=== PATIENT | male | born 1980 | race Caucasian/White ===

== ENCOUNTER 2017-12-09 17:50 | Inpatient (IN) | payer BC ==
[~2017-12-09] VITALS: Ht 182.9 cm; Wt 123.9 kg
[2017-12-09] MEDS ORDERED: SODIUM CHLORIDE 0.9% 1000ML 1,000 ML IV STA (18:06)
[2017-12-09 18:50] LABS: HEMATOCRIT 16.3 % (42-52); HEMOGLOBIN 3.7 g/dL (14.0-18.0); MEAN CELL VOLUME 56.8 fL (80-100); MEAN CORPUSCULAR HEMOGLOBIN 12.9 pg (25-34); MEAN CORPUSCULAR HGB CONC 22.7 g/dl (32-36); NUCLEATED RED BLOOD CELL ABS 0.15 K/uL (0-0); PLATELET COUNT 398 K/uL (130-400)
[2017-12-09 18:53] LABS: ALBUMIN 3.5 gm/dl (3.4-5.0); ALT/SGPT 15 U/L (12-78); AST/SGOT 29 U/L (15-37); BLOOD UREA NITROGEN 10 mg/dl (7-18); CALCIUM 8.3 mg/dl (8.5-10.1); CARBON DIOXIDE 23 mmol/L (21-32); CREATININE 1.07 mg/dl (0.60-1.40); GLUCOSE 91 mg/dl (70-99); LIPASE 164 U/L (73-393); SODIUM 140 mmol/L (136-145)
[2017-12-09 18:58] LABS: ALKALINE PHOSPHATASE 42 U/L (45-117); TOTAL PROTEIN 6.9 gm/dl (6.4-8.2)
[2017-12-09] MEDS ORDERED: PANTOprazole INJ 80 MG in DEXTROSE 5% 100ML IV ONE (19:15)
--- NOTE | 2017-12-09 19:20 | DIAGNOSTIC IMAGING REPORT ---
SINGLE VIEW CHEST CLINICAL HISTORY: GI bleeding. FINDINGS: An AP, portable, upright chest radiograph is obtained. No prior studies are available for comparison at the time of dictation. The examination is degraded by portable technique and apical lordotic positioning. The cardiomediastinal silhouette is unremarkable. The lungs and pleural spaces are clear. No pneumothorax is seen. The bony thorax is grossly intact. IMPRESSION: No active disease in the chest. Electronically signed by: Jamel Brannon M.D. 12/09/2017 7:18 PM Dictated Date/Time: 12/09/2017 7:18 PM
[2017-12-09 19:24] LABS: BASO % 0.6 %; BASO ABS # 0.05 K/uL (0-0.2); EOS % 2.1 %; EOS ABS # 0.17 K/uL (0-0.5); IG# 0.05 K/uL (0.00-0.02); LYMPH % 30.4 %; LYMPH ABS # 2.43 K/uL (1.2-3.4); MONO % 7.5 %; NEUT % 58.8 %
[2017-12-09] MEDS ORDERED: PANTOprazole INJ 40 MG in DEXTROSE 5% 100ML IV SCH (19:30)
[2017-12-09 19:44] VITALS: BP 138/69; PULSE 86; TEMP 37.4; O2SAT 99
[2017-12-09 20:00] VITALS: BP 130/70; PULSE 85; TEMP 37.6; O2SAT 98
[2017-12-09 20:01] LABS: PTT PATIENT 21.3 SECONDS (21.0-31.0)
[2017-12-09 20:15] VITALS: BP 132/70; PULSE 87; TEMP 37.1; O2SAT 99
[2017-12-09] MEDS ORDERED: ONDANSETRON INJ 2 MG/ML 2 ML VIAL IV PRN ×2 (20:30→20:45)
[2017-12-09] MEDS ORDERED: ACETAMINOPHEN 325 MG TAB PO PRN (20:30)
[2017-12-09 20:45] VITALS: BP 141/60; PULSE 84; TEMP 37.5; O2SAT 98
[2017-12-09] MEDS ORDERED: ICU PROTOCOL FOR HYPERGLYCEMIA PRN (20:45)
[2017-12-09] MEDS ORDERED: SODIUM CHLORIDE 0.9% 1000ML 1,000 ML IV SCH (21:00)
[2017-12-09] MEDS ORDERED: OPTIRAY 320 IV PRN (21:15)
[2017-12-09 21:20] LABS: PHOSPHORUS 3.4 mg/dl (2.5-4.9)
--- NOTE | 2017-12-09 21:26 | Critical Care Consultation ---
Critical Care Consultation Date of Consultation: Dec 09, 2017. 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 Patient was initially diagnosed with bronchitis and sent for continued lab work. A CBC returned with a hemoglobin of 4.1 and patient was called and directed to report to the emergency room. Repeat lab work here at [facility] demonstrated a hemoglobin of 3.7. Patient is hemodynamically stable with a heart rate in the 80s and blood pressures in the 120s-140s systolically. He is on room air with adequate saturations. Patient does state that he counts the acuity of this to last Tuesday when he began having diarrhea every 2 hours. He describes the bowel movements as that of soft serve ice cream and that it was possibly darker in color than normal. Over the course of and Tuesday discontinued, Tuesday he did have an episode of bright red blood per rectum. And over the weekend the symptoms did improve on their own. His accounts to reoccurring illnesses starting back in the fall to the point that she was documenting them in May. She states that these illnesses were "weekend illnesses" and the family attributed them to his job and sick contacts at the school. Over the course of the winter these illnesses decreased in frequency and in fact the [place] in the month of [place] and he recalls no shortness of breath or dyspnea during this vacation. However over the course of November describes increasing shortness of breath and dyspnea on exertion having issue with ascending 2 flights of steps. Patient does also state that over the last few weeks he has had limited appetite eating less of his meals than usual. He does not account for any recent heartburn or GERD-like symptoms. Going back further and the patient's past medical history he does state that approximately 8 years ago he was using Tums at night as if it were candy. And approximately the last 2 years has made dietary changes including no spicy foods for the evening meal and was able to successfully wean himself off the usage of Tums. He denies lightheadedness, dizziness or confusion. He has not lost consciousness. He denies any history of irritable bowel disease including Crohn's or ulcerative colitis. Patient has never been scoped in the past. He does believe he has a sister with irritable bowel syndrome otherwise there is no gastrointestinal or hematologic diseases in his family history. He denies family history of colon cancer. Takes 2 ibuprofen 1-2 times a week over the past 3 weeks for intermittent headache. Patient states that he did drink for fun back during college years but in the last 8 years is probably drank less than 10 times. Denies a history of hepatitis or cirrhosis. Patient does otherwise have a benign past medical history. The patient denies weight loss, fever, dizziness, headache, muscle weakness, numbness, change in vision, sore throat, chest pain, palpitations, awareness of tachyarrhythmias, leg swelling, nausea, vomiting, constipation, abdominal pain, other changes in urine or bowel habits. 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) Allergies Coded Allergies: No Known Allergies (Unverified , 12/09/17) Home Medications No Active Prescriptions or Reported Meds Current Inpatient Medications Current Inpatient Medications Medications (Trade) Dose Ordered Sig/Magalie Route Start Time Stop Time Status Last Admin Dose Admin Pantoprazole Sodium 40 mg/ Dextrose 100 ml @ 20 mls/hr Q5H IV 12/09/17 19:30 12/10/17 00:29 12/09/17 19:48 20 MLS/HR Ondansetron HCl (Zofran Inj) 4 mg Q6H PRN IV 12/09/17 20:45 01/08/18 20:44 Pantoprazole Sodium (Protonix IV Bolus/Drip) 1 ea UD IV 12/09/17 21:00 01/08/18 20:59 UNV Miscellaneous Information (Icu Protocol For Hyperglycemia) 1 ea PRN PRN N/A 12/09/17 20:45 12/11/17 20:44 Sodium Chloride 1,000 ml @ 150 mls/hr Q6H40M IV 12/09/17 21:00 01/08/18 20:59 Furosemide 20 mg/ Syringe 2 ml @ 4 mls/min ONE ONCE IV 12/09/17 21:00 12/09/17 21:01 UNV Ioversol (Optiray 320) 100 ml UD PRN IV 12/09/17 21:15 12/13/17 21:14 Review of Systems 12 systems reviewed and negative other than previously mentioned in the HPI. Physical Exam Date Time Temp Pulse Resp B/P (MAP) Pulse Ox O2 Delivery O2 Flow Rate FiO2 12/09/17 21:10 87 17 121/61 98 12/09/17 21:05 84 31 125/50 98 12/09/17 21:00 84 17 138/66 98 12/09/17 20:55 85 30 129/66 98 12/09/17 20:50 95 25 141/60 98 12/09/17 20:45 86 30 135/61 98 12/09/17 20:45 37.5 84 20 141/60 98 12/09/17 20:40 83 27 121/55 97 12/09/17 20:39 140/86 12/09/17 20:35 80 21 121/58 97 12/09/17 20:30 83 31 118/58 97 12/09/17 20:25 85 31 120/55 97 12/09/17 20:20 88 34 113/59 98 12/09/17 20:15 85 25 132/70 98 12/09/17 20:15 37.1 87 18 132/70 99 12/09/17 20:10 89 25 135/70 99 12/09/17 20:05 85 18 147/74 99 12/09/17 20:00 37.6 85 18 130/70 98 12/09/17 20:00 86 38 130/70 98 12/09/17 19:48 37.4 86 18 137/65 99 Room Air 12/09/17 19:44 37.4 86 18 138/69 99 12/09/17 18:30 95 12/09/17 18:18 98 Room Air 12/09/17 17:54 37.0 101 18 129/64 100 Room Air Vital Signs - as noted Laboratory Data - as noted Physical Exam: General - NAD, Very jovial, Very pale appearing Eyes - PERRL, EOMI No icterus, gaze conjugate ENT - Mucosa moist, no lesions or candidiasis Neck - Supple, trachea midline, no masses or lymphadenopathy, no JVD or bruits Lungs - No paradoxical chest wall movement, clear to auscultation bilaterally, no wheezes, rales, or rhonchi Heart - Reg rate and rhythm, No murmur, rubs, clicks, or gallops appreciated Abdomen - BS present, no bruits noted, tympanic to percussion, soft, nontender, nondistended, obese abdomen, no organomegaly Extremities - No edema, pedal pulses intact Neuro - A&O X 4 Strength extremities equal and appropriate bilaterally Reflexes: Normal and equal CN:PERRL, EOMI, no facial asymmetry, uvula/tongue midline Laboratory Results Last 24 Hours Test 12/09/17 18:20 12/09/17 19:40 12/09/17 19:46 12/09/17 20:41 White Blood Count 8.00 K/uL Red Blood Count 2.87 M/uL Hemoglobin 3.7 g/dL Hematocrit 16.3 % Mean Corpuscular Volume 56.8 fL Mean Corpuscular Hemoglobin 12.9 pg Mean Corpuscular Hemoglobin Concent 22.7 g/dl Platelet Count 398 K/uL Neutrophils (%) (Auto) 58.8 % Lymphocytes (%) (Auto) 30.4 % Monocytes (%) (Auto) 7.5 % Eosinophils (%) (Auto) 2.1 % Basophils (%) (Auto) 0.6 % Neutrophils # (Auto) 4.70 K/uL Lymphocytes # (Auto) 2.43 K/uL Monocytes # (Auto) 0.60 K/uL Eosinophils # (Auto) 0.17 K/uL Basophils # (Auto) 0.05 K/uL Immature Granulocyte % (Auto) 0.6 % Immature Granulocyte # (Auto) 0.05 K/uL Nucleated RBC Absolute Count (auto) 0.15 K/uL Nucleated Red Blood Cells % 1.9 % Polychromasia 1+ Hypochromasia PRESENT Poikilocytosis PRESENT Microcytosis PRESENT Tear Drop Cells 1+ Ovalocytes 1+ Schistocytes 1+ Sodium Level 140 mmol/L Potassium Level 4.0 mmol/L Chloride Level 109 mmol/L Carbon Dioxide Level 23 mmol/L Anion Gap 8.0 mmol/L Blood Urea Nitrogen 10 mg/dl Creatinine 1.07 mg/dl Est Creatinine Clear Calc Drug Dose 130.2 ml/min Estimated GFR () 103.0 Estimated GFR (Non- 88.8 BUN/Creatinine Ratio 9.1 Random Glucose 91 mg/dl Calcium Level 8.3 mg/dl Phosphorus Level 3.4 mg/dl Magnesium Level 2.1 mg/dl Total Bilirubin 0.5 mg/dl Direct Bilirubin 0.1 mg/dl Aspartate Amino Transf (AST/SGOT) 29 U/L Alanine Aminotransferase (ALT/SGPT) 15 U/L Alkaline Phosphatase 42 U/L Total Creatine Kinase 58 U/L Troponin I < 0.015 ng/ml Total Protein 6.9 gm/dl Albumin 3.5 gm/dl Lipase 164 U/L Urine Color YELLOW Urine Appearance CLEAR Urine pH 6.0 Urine Specific [place] 1.020 Urine Protein NEG Urine Glucose (UA) NEG Urine Ketones NEG Urine Occult Blood NEG Urine Nitrite NEG Urine Bilirubin NEG Urine Urobilinogen NEG Urine Leukocyte Esterase NEG Prothrombin Time 10.8 SECONDS Prothromb Time International Ratio 1.0 Activated Partial Thromboplast Time 21.3 SECONDS Partial Thromboplastin Ratio 0.8 Test 12/09/17 20:58 Diagnostic Results SINGLE VIEW CHEST CLINICAL HISTORY: GI bleeding. FINDINGS: An AP, portable, upright chest radiograph is obtained. No prior studies are available for comparison at the time of dictation. The examination is degraded by portable technique and apical lordotic positioning. The cardiomediastinal silhouette is unremarkable. The lungs and pleural spaces are clear. No pneumothorax is seen. The bony thorax is grossly intact. IMPRESSION: No active disease in the chest. Electronically signed by: Jamel Brannon M.D. 12/09/2017 7:18 PM Dictated Date/Time: 12/09/2017 7:18 PM Assessment & Plan (1) Anemia (2) GI bleed Reason Critically Ill: Patient is an 37-year-old male who is transferred to the ICU for newly diagnosed anemia with hemoglobin of 3.7 and positive fecal occult blood. PLAN: GI/Nutrition: * GI Bleed: Hemoglobin 3.7 with positive Hemoccult test in ED * Pts vitals are stable. Will monitor overnight * Continue transfusion goal Hemoglobin > 7 * Check H&H q6h * Pt is willing to under go Central access with an Introducer placement &/or Arterial Line if he acutely decompensates and requires such procedure * GI Consulted: Dr. Kraft will evaluate pt in AM for possible scope * Continue Protonix infusion, no role for Octreotide currently * NPO * GI Prophylaxis: On PPI Infusion Neuro: * Denies acute pain * PRN Tylenol Pain/fever * Avoid NSAIDS Resp: * Supplemental oxygen as required * Monitor for fluid overload versus blood transfusion reactions * On room air currently with adequate saturations * Recent hx of cough and diagnosed with Bronchitis, continue to monitor CV: * Vitals stable at this time. Map > 65 and no current tachycardia * Monitor closely on telemetry * No complaints of chest pain or awareness of tachycardia Fluids/Renal: * Pt received 1L bolus in ED. * Holding additional IV fluids currently as blood product is running at high rate * Will re-evaluate need to fluids in AM * No tee to gravity. Ambulating to toilet * BUN 10/ Cr 1.07 * Daily PRP * Dose of Lasix ordered by hospital team. Check electrolytes with repeat labs ID: * No current sign of bacterial infection. * Afebrile and without leukocytosis * Trend fever curve * Daily CBC for WBC Heme: * B12 and Folate Pending * Anemia noted as above in GI * DVT Prophylaxis: Chemical contraindicated. SCDs in place and pt ambulatory Endocrine: * Denies Hx of thyroid or DM * Accu-Checks per protocol, started insulin infusion for 2 blood sugars greater than 180 Access: Maintain 2 18g PIVs CCT: 45 Minutes; This time is exclusive of all separately billable procedures. Thank you for involving us in the care of this patient. Please refer to Dr. Last Webber's addendum for further recommendations. I agree with assessment and plan of Ray Haas PA-C. Problem Qualifiers (1) GI bleed: GI bleed type/associated pathology: unspecified gastrointestinal hemorrhage type Qualified Codes: K92.2 - Gastrointestinal hemorrhage, unspecified
--- NOTE | 2017-12-09 21:30 | History and Physical ---
History & Physical Date & Time of Service: Dec 09, 2017 at 20:53 Chief Complaint: Low Hemoglobin- Referred Primary Care Physician: Cortez Nieves M.D.(MARKIE) History of Present Illness Source: patient, partner, clinic records, hospital records Pt is 37 y/o M with no significant past medical history presented to ER sent from PCPs office for the hemoglobin. Patient seen at PCP office today and had hemoglobin: 4.1 and negative chest x-ray. Patient states for at least a month has noticed shortness of breath with climbing 2 sets of stairs and has noticed sensation of heart beating in his ears after climbing stairs. He has noticed generalized muscle tightness after carrying groceries for the past month also. Couple of days ago had cramping of lower extremity. Patient reports past 3 weeks has had a cough sometimes productive of white sputum. Reports since August or September has noticed very dark colored stools which he thought was maybe very dark green but could have been black which he attributed to eating a lot of leafy greens. Patient states 10 days ago he ate lucho salad when he was at a conference in [place]. That evening started with multiple episodes of diarrhea which lasted several days. Past couple of days have had very soft BMs. Today one soft BM this morning none since. Past 10 days has noticed very black colored stools. Denies any noted bright red blood per rectum or red bloody stools. Denies any abdominal pain or vomiting. Patient states for the last couple of months has been feeling tired or weak notices this on the weekends and takes his temperature and temp of 99 F. States his son had one episode of a loose bowel movement this past week. Reports past several months has had decreased appetite. He is unsure if had any weight loss. Reports people been telling him for couple of weeks that he looks pale. No others with GI symptoms. Patient denies any other recent travel. Denies recent antibiotic use. States occasionally will have indigestion after eating spicy foods which is resolved by drinking a glass of milk or take an antacid. Takes 2 ibuprofen 1-2 times a week over the past 3 weeks for intermittent headache. Denies EtOH use or tobacco use. Denies fever/chills, diaphoresis, dizziness, syncope, vision changes, neck pain, CP, orthopnea, hemoptysis, palpitations, sore throat, choking, otalgia, rhinorrhea, paresthesias, rashes, urinary symptoms. Denies history of IBD, celiac disease, PUD, H Pylori, GI bleed in past. Past Medical/Surgical History Medical Problems: (1) No significant past medical history Status: Chronic Surgical Problems: (1) Hx of appendectomy Status: Resolved (2) Hx of inguinal hernia repair Status: Resolved Family History FH: sarcoidosis FH: thyroid condition FH: uterine cancer Social History Smoking Status: Never Smoker Smokeless Tobacco Use: No Alcohol Use: none Drug Use: none Housing status: lives with family Occupational Status: employed Allergies Coded Allergies: No Known Allergies (Unverified , 12/09/17) Home Medications No Active Prescriptions or Reported Meds Review of Systems See HPI for pertinent positives & negatives. All other systems reviewed and were otherwise negative Physical Exam Vital Signs Date Time Temp Pulse Resp B/P (MAP) Pulse Ox O2 Delivery O2 Flow Rate FiO2 12/09/17 20:45 86 30 135/61 98 12/09/17 20:40 83 27 121/55 97 12/09/17 20:39 140/86 12/09/17 20:35 80 21 121/58 97 12/09/17 20:30 83 31 118/58 97 12/09/17 20:25 85 31 120/55 97 12/09/17 20:20 88 34 113/59 98 12/09/17 20:15 85 25 132/70 98 12/09/17 20:15 37.1 87 18 132/70 99 12/09/17 20:10 89 25 135/70 99 12/09/17 20:05 85 18 147/74 99 12/09/17 20:00 37.6 85 18 130/70 98 12/09/17 20:00 86 38 130/70 98 12/09/17 19:48 37.4 86 18 137/65 99 Room Air 12/09/17 19:44 37.4 86 18 138/69 99 12/09/17 18:30 95 12/09/17 18:18 98 Room Air 12/09/17 17:54 37.0 101 18 129/64 100 Room Air General Appearance: WD/WN, no apparent distress Head: normocephalic, atraumatic Eyes: PERRL, EOMI, sclerae normal, + pertinent finding (+pale conjunctiva) ENT: hearing grossly normal, pharynx normal, + pertinent finding (mucous membranes moist) Neck: supple, trachea midline Respiratory/Chest: lungs clear, normal breath sounds, no respiratory distress Cardiovascular: regular rate, rhythm, no murmur, normal peripheral pulses Abdomen/GI: normal bowel sounds, non tender, soft Extremities/Musculoskelatal: normal inspection, normal capillary refill, no pedal edema, normal range of motion, non-tender Neurologic/Psych: alert, normal mood/affect, oriented x 3 Skin: warm/dry, + pertinent finding (+pale) Diagnostics Laboratory Results Results Past 24 Hours Test 12/09/17 18:20 12/09/17 19:40 12/09/17 19:46 12/09/17 20:41 Range/Units White Blood Count 8.00 4.8-10.8 K/uL Red Blood Count 2.87 4.7-6.1 M/uL Hemoglobin 3.7 14.0-18.0 g/dL Hematocrit 16.3 42-52 % Mean Corpuscular Volume 56.8 80-100 fL Mean Corpuscular Hemoglobin 12.9 25-34 pg Mean Corpuscular Hemoglobin Concent 22.7 32-36 g/dl Platelet Count 398 130-400 K/uL Neutrophils (%) (Auto) 58.8 % Lymphocytes (%) (Auto) 30.4 % Monocytes (%) (Auto) 7.5 % Eosinophils (%) (Auto) 2.1 % Basophils (%) (Auto) 0.6 % Neutrophils # (Auto) 4.70 1.4-6.5 K/uL Lymphocytes # (Auto) 2.43 1.2-3.4 K/uL Monocytes # (Auto) 0.60 0.11-0.59 K/uL Eosinophils # (Auto) 0.17 0-0.5 K/uL Basophils # (Auto) 0.05 0-0.2 K/uL Immature Granulocyte % (Auto) 0.6 % Immature Granulocyte # (Auto) 0.05 0.00-0.02 K/uL Nucleated RBC Absolute Count (auto) 0.15 0-0 K/uL Nucleated Red Blood Cells % 1.9 % Polychromasia 1+ Hypochromasia PRESENT Poikilocytosis PRESENT Microcytosis PRESENT Tear Drop Cells 1+ Ovalocytes 1+ Schistocytes 1+ Sodium Level 140 136-145 mmol/L Potassium Level 4.0 3.5-5.1 mmol/L Chloride Level 109 98-107 mmol/L Carbon Dioxide Level 23 21-32 mmol/L Anion Gap 8.0 3-11 mmol/L Blood Urea Nitrogen 10 7-18 mg/dl Creatinine 1.07 0.60-1.40 mg/dl Est Creatinine Clear Calc Drug Dose 130.2 ml/min Estimated GFR () 103.0 Estimated GFR (Non- 88.8 BUN/Creatinine Ratio 9.1 10-20 Random Glucose 91 70-99 mg/dl Calcium Level 8.3 8.5-10.1 mg/dl Total Bilirubin 0.5 0.2-1 mg/dl Direct Bilirubin 0.1 0-0.2 mg/dl Aspartate Amino Transf (AST/SGOT) 29 15-37 U/L Alanine Aminotransferase (ALT/SGPT) 15 12-78 U/L Alkaline Phosphatase 42 45-117 U/L Total Creatine Kinase 58 39-308 U/L Troponin I < 0.015 0-0.045 ng/ml Total Protein 6.9 6.4-8.2 gm/dl Albumin 3.5 3.4-5.0 gm/dl Lipase 164 73-393 U/L Urine Color YELLOW Urine Appearance CLEAR CLEAR Urine pH 6.0 4.5-7.5 Urine Specific [place] 1.020 1.000-1.030 Urine Protein NEG NEG Urine Glucose (UA) NEG NEG Urine Ketones NEG NEG Urine Occult Blood NEG NEG Urine Nitrite NEG NEG Urine Bilirubin NEG NEG Urine Urobilinogen NEG NEG Urine Leukocyte Esterase NEG NEG Prothrombin Time 10.8 9.0-12.0 SECONDS Prothromb Time International Ratio 1.0 0.9-1.1 Activated Partial Thromboplast Time 21.3 21.0-31.0 SECONDS Partial Thromboplastin Ratio 0.8 Diagnostic Radiology CXR: IMPRESSION: No active disease in the chest. EKG EKG: NSR, rate 91 Impression Assessment and Plan ANEMIA/GI BLEED Pt reports onset diarrhea and noted melena 10 days ago after eating Lucho lettuce. Today 1 loose BM. Patient admits very dark colored stools past 4 months, denies abdominal pain. Reports shortness of breath with 2 flights of stairs for the past month, cough 1 month. Notable pale skin 2 weeks. Denies dizziness/syncope. In ER Hgb: 3.7, was 4.1 out patient lab today. Patient afebrile, P: 101 down to 86, R: 18, BP 138/69, R: 18, 99% on room air. Heme positive stool reported in ER. Patient with 1 unit PRBC started in ER, Protonix drip started and patient given 1 L NSS. CXR: negative. Patient stable. 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 difficile -GI consult-discussed with Dr. Kraft will see patient in a.m. -N.p.o. after midnight -CBC, PRP in a.m. DVT Prophylaxis -SCDs Disposition admit ICU Full Code Follows with Dr Nieves for routine care Pt was seen with Dr Kessler. See addendum Agree with above h and P. Briefly 37Y M with no significant Past medical history presents with proound anemia. breanne says he was getting sob on exertion since last few weeks and aklso having cough and thought he had bronchitis and went to see his pcp where blood work showed significant anemia and was adviced to got to ER. Breanne says since last august he notuiced black stools on and off thought be from his green diet. last 1-2 weeks has diarrhea with black stools. Last tuesday had one episode of small amount obf blood color stools but it was resolved next day.Denies any abdominal pain. No nausea. No chest pain. No dizzness. Takes Nsaid's once in a while for headaches. Currently resting comfortably and hemodynamically stable. p/e Ge Obese. Not in distress Cvbs s1 and s2 hearfd no murmurs Rs cta b/l no added sounds Abd benign Well Puller Head non focal ext no erythema a/p Profound anemia Presented with hb 3.7 hemepositive black stools on and off for last 3-4 months. Normal wbc and platelets. Started on ppi drip to transfuse 3 units prbc today closely f/u h and h npo consulted GI close monitor in ICU DVT px scds Resuscitation Status Full code VTE Prophylaxis Will order VTE Prophylaxis: Yes Additional Copies To Cortez Nieves M.D.(MARKIE)
[2017-12-09 21:43] VITALS: BP 146/83; PULSE 90; TEMP 37.6; O2SAT 99; BMI 36.8
[2017-12-09] MEDS ORDERED: FUROSEMIDE INJ 20 MG in SYRINGE 0 ML IV ONE (23:00)
--- NOTE | 2017-12-09 23:11 | EMERGENCY ROOM VISIT NOTE ---
History Report prepared by Annia: Geo Abbott Under the Supervision of: Dr. Akash Merlos D.O. First contact with patient: 17:59 Chief Complaint: ABNORMAL LABS Stated Complaint: LOW HEMOGLOBIN- REFERRED History of Present Illness The patient is a 37 year old male who presents to the Emergency Room with complaints of a hemoglobin of 4.1 noticed this morning. The patient states that starting around October 16 he has been having shortness of breath with exertion, and he could feel the blood in his ears. Two to three weeks ago he states that he started to get a cough, though he denies any hemoptysis, and he was not on any antibiotics. The notes that the patient has been pale for the past two weeks, and the patient notes that he has been having body aches and muscle aches. He notes that the patient had a salad with david lettuce a week and a half ago, and he states that the next day he had diarrhea every two hours, and then four days ago he had an episode of bloody stool, and since then he has been having very dark stools. The patient states that he does not use Tylenol, Motrin, or NSAIDS very regularly, though he has used it recently for some headaches. Pt denies change in vision, fevers, chest pain, nausea, vomiting, pain with urination, and abdominal pain. Source of History: patient, spouse/significant other Onset: noticed this morning Position: other (global) Quality: other (low hemoglobin) Timing: constant Associated Symptoms: + cough, + SOB, + diarrhea, No nausea, No vomiting, No abdominal pain Note: Associated symptoms: Bloody stools and dark stools Review of Systems See HPI for pertinent positives & negatives. A total of 10 systems reviewed and were otherwise negative. Past Medical & Surgical Medical Problems: (1) Anemia (2) GI bleed (3) No significant past medical history Surgical Problems: (1) Hx of appendectomy (2) Hx of inguinal hernia repair Social History Smoking Status: Never Smoker Marital Status: Housing Status: lives with family Occupation Status: employed Current/Historical Medications No Active Prescriptions or Reported Meds Allergies Coded Allergies: No Known Allergies (Unverified , 12/09/17) Physical Exam Vital Signs Date Time Temp Pulse Resp B/P (MAP) Pulse Ox O2 Delivery O2 Flow Rate FiO2 12/09/17 20:45 86 30 135/61 98 12/09/17 20:45 37.5 84 20 141/60 98 12/09/17 20:40 83 27 121/55 97 12/09/17 20:39 140/86 12/09/17 20:35 80 21 121/58 97 12/09/17 20:30 83 31 118/58 97 12/09/17 20:25 85 31 120/55 97 12/09/17 20:20 88 34 113/59 98 12/09/17 20:15 85 25 132/70 98 12/09/17 20:15 37.1 87 18 132/70 99 12/09/17 20:10 89 25 135/70 99 12/09/17 20:05 85 18 147/74 99 12/09/17 20:00 37.6 85 18 130/70 98 12/09/17 20:00 86 38 130/70 98 12/09/17 19:48 37.4 86 18 137/65 99 Room Air 12/09/17 19:44 37.4 86 18 138/69 99 12/09/17 18:30 95 12/09/17 18:18 98 Room Air 12/09/17 17:54 37.0 101 18 129/64 100 Room Air Physical Exam GENERAL: Standing up in room, pale, no acute distress, non-toxic. EYE EXAM: normal conjunctiva. OROPHARYNX: no exudate, no erythema, lips, buccal mucosa, and tongue normal and mucous membranes are moist NECK: supple, no nuchal rigidity, no adenopathy, non-tender LUNGS: Clear to auscultation. Normal chest wall mechanics HEART: Tachycardic. No murmurs, S1 normal and S2 normal ABDOMEN: abdomen soft, non-tender, normo-active bowel sounds, no masses, no rebound or guarding. BACK: Back is symmetrical on inspection and there is no deformity, no midline tenderness, no CVA tenderness. SKIN: no rashes and no bruising UPPER EXTREMITIES: upper extremities are grossly normal. LOWER EXTREMITIES: No pitting edema. NEURO EXAM: Normal sensorium, cranial nerves II-XII grossly intact, normal speech, no gross weakness of arms, no gross weakness of legs. Medical Decision & Procedures ER Provider Diagnostic Interpretation: Radiology results as stated below per my review and the radiologist's interpretation: SINGLE VIEW CHEST CLINICAL HISTORY: GI bleeding. FINDINGS: An AP, portable, upright chest radiograph is obtained. No prior studies are available for comparison at the time of dictation. The examination is degraded by portable technique and apical lordotic positioning. The cardiomediastinal silhouette is unremarkable. The lungs and pleural spaces are clear. No pneumothorax is seen. The bony thorax is grossly intact. IMPRESSION: No active disease in the chest. Electronically signed by: Jamel Brannon M.D. 12/09/2017 7:18 PM Dictated Date/Time: 12/09/2017 7:18 PM Laboratory Results 12/09/17 18:20 Red Blood Count 2.87, Mean Corpuscular Volume 56.8, Mean Corpuscular Hemoglobin 12.9, Mean Corpuscular Hemoglobin Concent 22.7, Neutrophils (%) (Auto) 58.8, Lymphocytes (%) (Auto) 30.4, Monocytes (%) (Auto) 7.5, Eosinophils (%) (Auto) 2.1, Basophils (%) (Auto) 0.6, Neutrophils # (Auto) 4.70, Lymphocytes # (Auto) 2.43, Monocytes # (Auto) 0.60, Eosinophils # (Auto) 0.17, Basophils # (Auto) 0.05 12/09/17 18:20 Test 12/09/17 18:20 12/09/17 19:40 12/09/17 19:46 White Blood Count 8.00 K/uL (4.8-10.8) Red Blood Count 2.87 M/uL (4.7-6.1) Hemoglobin 3.7 g/dL (14.0-18.0) Hematocrit 16.3 % (42-52) Mean Corpuscular Volume 56.8 fL (80-100) Mean Corpuscular Hemoglobin 12.9 pg (25-34) Mean Corpuscular Hemoglobin Concent 22.7 g/dl (32-36) Platelet Count 398 K/uL (130-400) Neutrophils (%) (Auto) 58.8 % Lymphocytes (%) (Auto) 30.4 % Monocytes (%) (Auto) 7.5 % Eosinophils (%) (Auto) 2.1 % Basophils (%) (Auto) 0.6 % Neutrophils # (Auto) 4.70 K/uL (1.4-6.5) Lymphocytes # (Auto) 2.43 K/uL (1.2-3.4) Monocytes # (Auto) 0.60 K/uL (0.11-0.59) Eosinophils # (Auto) 0.17 K/uL (0-0.5) Basophils # (Auto) 0.05 K/uL (0-0.2) Immature Granulocyte % (Auto) 0.6 % Immature Granulocyte # (Auto) 0.05 K/uL (0.00-0.02) Nucleated RBC Absolute Count (auto) 0.15 K/uL (0-0) Nucleated Red Blood Cells % 1.9 % Polychromasia 1+ Hypochromasia PRESENT Poikilocytosis PRESENT Microcytosis PRESENT Tear Drop Cells 1+ Ovalocytes 1+ Schistocytes 1+ Anion Gap 8.0 mmol/L (3-11) Est Creatinine Clear Calc Drug Dose 130.2 ml/min Estimated GFR () 103.0 Estimated GFR (Non- 88.8 BUN/Creatinine Ratio 9.1 (10-20) Calcium Level 8.3 mg/dl (8.5-10.1) Phosphorus Level 3.4 mg/dl (2.5-4.9) Magnesium Level 2.1 mg/dl (1.8-2.4) Total Bilirubin 0.5 mg/dl (0.2-1) Direct Bilirubin 0.1 mg/dl (0-0.2) Aspartate Amino Transf (AST/SGOT) 29 U/L (15-37) Alanine Aminotransferase (ALT/SGPT) 15 U/L (12-78) Alkaline Phosphatase 42 U/L (45-117) Total Creatine Kinase 58 U/L (39-308) Troponin I < 0.015 ng/ml (0-0.045) Total Protein 6.9 gm/dl (6.4-8.2) Albumin 3.5 gm/dl (3.4-5.0) Lipase 164 U/L (73-393) Urine Color YELLOW Urine Appearance CLEAR (CLEAR) Urine pH 6.0 (4.5-7.5) Urine Specific [place] 1.020 (1.000-1.030) Urine Protein NEG (NEG) Urine Glucose (UA) NEG (NEG) Urine Ketones NEG (NEG) Urine Occult Blood NEG (NEG) Urine Nitrite NEG (NEG) Urine Bilirubin NEG (NEG) Urine Urobilinogen NEG (NEG) Urine Leukocyte Esterase NEG (NEG) Prothrombin Time 10.8 SECONDS (9.0-12.0) Prothromb Time International Ratio 1.0 (0.9-1.1) Activated Partial Thromboplast Time 21.3 SECONDS (21.0-31.0) Partial Thromboplastin Ratio 0.8 Laboratory results per my review. Medications Administered Medications (Trade) Dose Ordered Sig/Magalie Route Start Time Stop Time Status Last Admin Dose Admin Sodium Chloride 1,000 ml @ 999 mls/hr Q1H1M STAT IV 12/09/17 18:06 12/09/17 19:06 DC 12/09/17 18:34 999 MLS/HR Pantoprazole Sodium 80 mg/ Dextrose 120 ml @ 480 mls/hr TODAY@1915 ONCE IV 12/09/17 19:15 12/09/17 19:29 DC 12/09/17 19:26 480 MLS/HR Pantoprazole Sodium 40 mg/ Dextrose 100 ml @ 20 mls/hr Q5H IV 12/09/17 19:30 12/10/17 00:29 12/09/17 19:48 20 MLS/HR ECG Per My Interpretation Indication: SOB/dyspnea, other Rate (beats per minute): 91 Rhythm: normal sinus Findings: no ectopy, other (normal axis) ED Course ED COURSE: Vital signs were reviewed and showed tachycardia. The patients medical record was reviewed The above diagnostic studies were performed and reviewed. ED treatments and interventions as stated above. 1758: The patient was evaluated in room B9. A complete history and physical examination was performed. 180: Sodium Chloride 1000 ml @ 999 mls/hr IV 1914: Pantoprazole Sodium 80mg/ Dextrose 120ml @ 480mls/hr IV 1929: Pantoprazole Sodium 40mg/ Dextrose 20mls/hr IV 1941: Upon reevaluation, the patient is doing okay.I discussed my findings with the patient and he understands and agrees with the treatment plan. Based on the patients age, coexisting illnesses, exam and lab findings the decision to treat as an inpatient was made. The patient remained stable while under my care. The patient will be evaluated for further management. 1943: I reviewed the patient's case with Bina Hampton PA-C [facility] Hospitalist. She will evaluate the patient for further management. Medical Decision Differential Diagnosis includes but is not limited to dehydration, stroke, anemia, hypoglycemia, hyponatremia, hypernatremia, urinary tract infection, pneumonia, bronchitis, sepsis, gastroenteritis, additional abdominal pathology, metabolic abnormalities and infections. Patient is a 37-year-old male who presents the ER for hemoglobin of 4. Upon presentation he was slightly tachycardic. He does admit to dark tarry stools and intermittent bright red blood. He has been taking some intermittent NSAIDs. Denies any steroids. He has no abdominal pain. Patient has no other complaints at this time. He does admit to exertional shortness of breath. Labs were obtained and show a hemoglobin of 3.7. BMP along with LFTs, bilirubin and troponin were negative. Lipase is normal. UA was negative. Rectal was heme positive. Patient was given fluids, Protonix drip and bolus and PRBCs. He was monitored closely while in the ER and admitted to internal medicine for GI bleed and symptomatic anemia. Medication Reconcilliation Current Medication List: was personally reviewed by me Blood Pressure Screening Patient's blood pressure: Normal blood pressure Consults Time Called: 1940 Consulting Physician: Bina Garrett Returned Call: 1943 I reviewed the patient's case with Bina Vanessaist. She will evaluate the patient for further management. Impression Primary Impression: Symptomatic anemia Additional Impression: GI bleed Critical Care I have personally spent 35 minutes of critical care time in the direct management of this patient. This includes bedside care, interpretation of diagnostic studies, and testing, discussion with consultants, patient, and family members, and other required patient management activities. This 35 minutes is in excess of all separately billable procedures. Scribe Attestation The scribe's documentation has been prepared under my direction and personally reviewed by me in its entirety. I confirm that the note above accurately reflects all work, treatment, procedures, and medical decision making performed by me. Departure Information Dispostion Being Evaluated By Hospitalist Prescriptions No Active Prescriptions or Reported Meds Referrals Cortez Nieves M.D. ([facility]) (PCP) Patient Instructions My [facility] Problem Qualifiers Additional Impression: GI bleed GI bleed type/associated pathology: unspecified gastrointestinal hemorrhage type Qualified Codes: K92.2 - Gastrointestinal hemorrhage, unspecified
--- NOTE | 2017-12-09 23:29 | DIAGNOSTIC IMAGING REPORT ---
CT SCAN OF THE ABDOMEN AND PELVIS WITH IV CONTRAST CLINICAL HISTORY: Melena. Anemia. COMPARISON STUDY: No priors. TECHNIQUE: Following the IV administration of 93 cc of Optiray 320, CT scan of the abdomen and pelvis is performed from the lung bases to the proximal femora. Images are reviewed in the axial, sagittal, and coronal planes. IV contrast was administered without complication. A dose lowering technique was utilized adhering to the principles of ALARA. CT DOSE: 1439.83 mGy.cm FINDINGS: Lung bases: The heart is normal in size and without pericardial effusion. The lung bases are clear. Liver: The contrast-enhanced liver is normal in size and contour. The liver demonstrates diffusely diminished attenuation consistent with hepatic steatosis. There is no intrahepatic biliary ductal dilatation. The hepatic veins and portal veins are patent. Gallbladder: Unremarkable. Spleen: The spleen is mildly enlarged, measuring 13.4 cm in length. Pancreas: Unremarkable. Adrenal glands: Unremarkable. Kidneys: The contrast enhanced kidneys are normal in size and without hydronephrosis. The kidneys enhance symmetrically. A 1.3 cm cyst is noted in the right upper pole. A subcentimeter cortical hypodensity in the left kidney also likely represents a cyst but is too small for definitive characterization. Abdominal vasculature: The abdominal aorta is normal in course and caliber. Stomach and bowel: There is a moderate to large hiatal hernia. Mild stranding suggested around the distal stomach, best seen on axial image #129. There is no significant gastric wall thickening or pneumatosis. The duodenum is normal in configuration. No bowel obstruction is seen. There are scattered colonic diverticula without CT evidence of acute diverticulitis. No thick walled bowel loops are identified. The appendix is not identified and reported surgically absent. Peritoneum: There is no intraperitoneal free air or abdominal ascites. There is a small fat-containing umbilical hernia. Lymphadenopathy: None. Pelvic viscera: The bladder, prostate, and seminal vesicles are normal as visualized. Skeletal structures: No lytic or blastic lesions are seen. IMPRESSION: 1. There is mild nonspecific stranding suggested around the distal stomach. No significant gastric wall thickening is identified. Correlate clinically for evidence of gastritis. Endoscopy could be considered for further assessment if clinically warranted. 2. The small bowel loops and colon are normal in appearance. 3. Moderate to large hiatal hernia. 4. Findings suggest mild hepatic steatosis. 5. Additional findings as above. Electronically signed by: Jamel Brannon M.D. 12/09/2017 11:27 PM Dictated Date/Time: 12/09/2017 11:19 PM
[2017-12-10] VITALS (53 sets, daily range): BP systolic 96–157; BP diastolic 44–76; PULSE 61–83; TEMP 36.6–37.3; O2SAT 95–100
[2017-12-10] MEDS: PANTOprazole INJ 40 MG in DEXTROSE 5% 100ML IV SCH ×4 (00:41→15:28)
[2017-12-10 03:43] LABS: CALCIUM 8.2 mg/dl (8.5-10.1); CREATININE 1.02 mg/dl (0.60-1.40); PHOSPHORUS 3.7 mg/dl (2.5-4.9)
[2017-12-10 03:44] LABS: HEMOGLOBIN 5.8 g/dL (14.0-18.0); MEAN CELL VOLUME 64.2 fL (80-100); MEAN CORPUSCULAR HEMOGLOBIN 17.7 pg (25-34); MEAN CORPUSCULAR HGB CONC 27.6 g/dl (32-36); MEAN PLATELET VOLUME 8.4 fL (7.4-10.4); NUCLEATED RED BLOOD CELL ABS 0.12 K/uL (0-0); PLATELET COUNT 298 K/uL (130-400); RED CELL DISTRIBUTION WIDTH CV 29.6 % (11.5-14.5); RED CELL DISTRIBUTION WIDTH SD 66.2 fL (36.4-46.3); WHITE BLOOD COUNT 6.17 K/uL (4.8-10.8)
[2017-12-10 03:51] LABS: BASO % 0.6 %; BASO ABS # 0.04 K/uL (0-0.2); EOS % 3.1 %; EOS ABS # 0.19 K/uL (0-0.5); IG# 0.02 K/uL (0.00-0.02); LYMPH % 29.2 %; MONO % 7.6 %; MONO ABS # 0.47 K/uL (0.11-0.59); NEUT % 59.2 %; NEUT ABS # 3.65 K/uL (1.4-6.5)
[2017-12-10 08:31] LABS: HEMATOCRIT 25.6 % (42-52); HEMOGLOBIN 7.4 g/dL (14.0-18.0)
--- NOTE | 2017-12-10 09:34 | Progress Note ---
Internal Med Progress Note Date of Service: Dec 10, 2017. Provider Documentation: SUBJECTIVE: seen and examined at bedside States having abdominal bloating Mild headache 1/10 Denies chest pain, SOB, nausea, dizziness No bleeding issues Last BM yesterday AM Family at bedside No other complaints OBJECTIVE: Vital Signs-as noted below Physical Exam: General Appearance:Moderately built and nourished, no apparent distress Head: normocephalic, Atraumatic Eyes: normal inspection, EOMI, PERRL Neck: supple, Trachea midline Respiratory/Chest: Normal breath sounds, CTA Cardiovascular: S1, S2, No murmur Abdomen/GI:Soft, Non tender, Bowel sounds present Extremities/Musculoskelatal:normal inspection, no edema Neurologic/Psych:AAOX3, grossly no focal neurological deficits Skin: normal color, warm Lab data as noted below. ASSESSMENT & PLAN: Profound Anemia: GI bleeding: H/O melena intermittently, CHOI S/P 5 units PRBCs Continue IV Protonix IV Fluids Vitamin B12 and folate: CT abd: gastritis, large hiatal hernia Stool studies: pending GI consulted monitor H&H NPO for now Avoid NSAIDs DVT Px: SCDs Disposition: Expect to discharge home when stable Vital Signs: Date Time Temp Pulse Resp B/P (MAP) Pulse Ox O2 Delivery O2 Flow Rate FiO2 12/10/17 09:30 74 20 124/71 (88) 98 Room Air 12/10/17 07:30 36.9 74 20 125/74 (91) 100 Room Air 12/10/17 07:30 Room Air 12/10/17 06:31 37.3 75 20 117/69 (85) 100 12/10/17 06:16 37.3 74 17 123/67 (85) 99 12/10/17 06:01 37.1 64 25 119/74 (89) 98 12/10/17 05:50 37.0 69 28 127/66 (86) 98 12/10/17 05:46 78 18 123/68 (86) 98 12/10/17 05:45 72 23 115/69 (84) 100 12/10/17 05:44 37.2 73 16 115/69 99 12/10/17 05:31 72 13 119/74 (89) 100 12/10/17 05:16 75 20 124/66 (85) 99 12/10/17 05:01 37.0 63 25 124/65 (84) 98 Room Air 12/10/17 04:46 71 28 109/50 (69) 98 Room Air 12/10/17 04:31 37.0 79 16 124/65 (84) 99 Room Air 12/10/17 04:20 37.0 67 23 128/70 (89) 99 Room Air 12/10/17 04:15 37.0 72 20 124/62 (82) 100 Room Air 12/10/17 04:14 37.0 73 16 124/62 99 12/10/17 04:01 67 25 126/62 (83) 98 Room Air 12/10/17 04:00 Room Air 12/10/17 03:31 70 22 120/71 (87) 99 Room Air 12/10/17 03:02 74 16 122/49 (73) 100 Room Air 12/10/17 02:31 70 26 126/65 (85) 97 Room Air 12/10/17 02:01 37.1 73 22 112/62 (79) 98 Room Air 12/10/17 01:43 37.0 78 19 123/49 (73) 99 Room Air 12/10/17 01:31 68 22 108/44 (65) 98 Room Air 12/10/17 01:16 37.1 76 20 124/65 (84) 97 Room Air 12/10/17 01:01 69 26 116/57 (76) 99 Room Air 12/10/17 00:46 37.2 75 25 112/65 (81) 99 Room Air 12/10/17 00:43 36.9 75 24 115/60 (78) 98 Room Air 12/10/17 00:37 37.1 78 20 119/57 (77) 98 Room Air 12/10/17 00:01 37.1 72 25 126/64 (84) 100 Room Air 12/09/17 23:59 Room Air 12/09/17 21:43 37.6 90 28 146/83 99 Room Air 12/09/17 21:10 87 17 121/61 98 12/09/17 21:05 84 31 125/50 98 12/09/17 21:00 84 17 138/66 98 12/09/17 20:55 85 30 129/66 98 12/09/17 20:50 95 25 141/60 98 12/09/17 20:45 86 30 135/61 98 12/09/17 20:45 37.5 84 20 141/60 98 12/09/17 20:40 83 27 121/55 97 12/09/17 20:39 140/86 12/09/17 20:35 80 21 121/58 97 12/09/17 20:30 83 31 118/58 97 12/09/17 20:25 85 31 120/55 97 12/09/17 20:20 88 34 113/59 98 12/09/17 20:15 85 25 132/70 98 12/09/17 20:15 37.1 87 18 132/70 99 12/09/17 20:10 89 25 135/70 99 12/09/17 20:05 85 18 147/74 99 12/09/17 20:00 37.6 85 18 130/70 98 12/09/17 20:00 86 38 130/70 98 12/09/17 19:48 37.4 86 18 137/65 99 Room Air 12/09/17 19:44 37.4 86 18 138/69 99 12/09/17 18:30 95 12/09/17 18:18 98 Room Air 12/09/17 17:54 37.0 101 18 129/64 100 Room Air Lab Results: Results Past 24 Hours Test 12/09/17 18:20 12/09/17 19:40 12/09/17 19:46 12/09/17 21:44 Range/Units White Blood Count 8.00 4.8-10.8 K/uL Red Blood Count 2.87 4.7-6.1 M/uL Hemoglobin 3.7 14.0-18.0 g/dL Hematocrit 16.3 42-52 % Mean Corpuscular Volume 56.8 80-100 fL Mean Corpuscular Hemoglobin 12.9 25-34 pg Mean Corpuscular Hemoglobin Concent 22.7 32-36 g/dl Platelet Count 398 130-400 K/uL Neutrophils (%) (Auto) 58.8 % Lymphocytes (%) (Auto) 30.4 % Monocytes (%) (Auto) 7.5 % Eosinophils (%) (Auto) 2.1 % Basophils (%) (Auto) 0.6 % Neutrophils # (Auto) 4.70 1.4-6.5 K/uL Lymphocytes # (Auto) 2.43 1.2-3.4 K/uL Monocytes # (Auto) 0.60 0.11-0.59 K/uL Eosinophils # (Auto) 0.17 0-0.5 K/uL Basophils # (Auto) 0.05 0-0.2 K/uL Immature Granulocyte % (Auto) 0.6 % Immature Granulocyte # (Auto) 0.05 0.00-0.02 K/uL Nucleated RBC Absolute Count (auto) 0.15 0-0 K/uL Nucleated Red Blood Cells % 1.9 % Polychromasia 1+ Hypochromasia PRESENT Poikilocytosis PRESENT Microcytosis PRESENT Tear Drop Cells 1+ Ovalocytes 1+ Schistocytes 1+ Sodium Level 140 136-145 mmol/L Potassium Level 4.0 3.5-5.1 mmol/L Chloride Level 109 98-107 mmol/L Carbon Dioxide Level 23 21-32 mmol/L Anion Gap 8.0 3-11 mmol/L Blood Urea Nitrogen 10 7-18 mg/dl Creatinine 1.07 0.60-1.40 mg/dl Est Creatinine Clear Calc Drug Dose 130.2 ml/min Estimated GFR () 103.0 Estimated GFR (Non- 88.8 BUN/Creatinine Ratio 9.1 10-20 Random Glucose 91 70-99 mg/dl Calcium Level 8.3 8.5-10.1 mg/dl Phosphorus Level 3.4 2.5-4.9 mg/dl Magnesium Level 2.1 1.8-2.4 mg/dl Total Bilirubin 0.5 0.2-1 mg/dl Direct Bilirubin 0.1 0-0.2 mg/dl Aspartate Amino Transf (AST/SGOT) 29 15-37 U/L Alanine Aminotransferase (ALT/SGPT) 15 12-78 U/L Alkaline Phosphatase 42 45-117 U/L Total Creatine Kinase 58 39-308 U/L Troponin I < 0.015 0-0.045 ng/ml Total Protein 6.9 6.4-8.2 gm/dl Albumin 3.5 3.4-5.0 gm/dl Lipase 164 73-393 U/L Urine Color YELLOW Urine Appearance CLEAR CLEAR Urine pH 6.0 4.5-7.5 Urine Specific [place] 1.020 1.000-1.030 Urine Protein NEG NEG Urine Glucose (UA) NEG NEG Urine Ketones NEG NEG Urine Occult Blood NEG NEG Urine Nitrite NEG NEG Urine Bilirubin NEG NEG Urine Urobilinogen NEG NEG Urine Leukocyte Esterase NEG NEG Prothrombin Time 10.8 9.0-12.0 SECONDS Prothromb Time International Ratio 1.0 0.9-1.1 Activated Partial Thromboplast Time 21.3 21.0-31.0 SECONDS Partial Thromboplastin Ratio 0.8 Vitamin B12 Level 366 211-911 pg/mL Folate 14.27 >5.38 ng/mL Test 12/10/17 03:14 12/10/17 08:06 Range/Units White Blood Count 6.17 4.8-10.8 K/uL Red Blood Count 3.27 4.7-6.1 M/uL Hemoglobin 5.8 7.4 14.0-18.0 g/dL Hematocrit 21.0 25.6 42-52 % Mean Corpuscular Volume 64.2 80-100 fL Mean Corpuscular Hemoglobin 17.7 25-34 pg Mean Corpuscular Hemoglobin Concent 27.6 32-36 g/dl Platelet Count 298 130-400 K/uL Mean Platelet Volume 8.4 7.4-10.4 fL Neutrophils (%) (Auto) 59.2 % Lymphocytes (%) (Auto) 29.2 % Monocytes (%) (Auto) 7.6 % Eosinophils (%) (Auto) 3.1 % Basophils (%) (Auto) 0.6 % Neutrophils # (Auto) 3.65 1.4-6.5 K/uL Lymphocytes # (Auto) 1.80 1.2-3.4 K/uL Monocytes # (Auto) 0.47 0.11-0.59 K/uL Eosinophils # (Auto) 0.19 0-0.5 K/uL Basophils # (Auto) 0.04 0-0.2 K/uL RDW Standard Deviation 66.2 36.4-46.3 fL RDW Coefficient of Variation 29.6 11.5-14.5 % Immature Granulocyte % (Auto) 0.3 % Immature Granulocyte # (Auto) 0.02 0.00-0.02 K/uL Nucleated RBC Absolute Count (auto) 0.12 0-0 K/uL Nucleated Red Blood Cells % 1.9 % Polychromasia 1+ Hypochromasia PRESENT Anisocytosis PRESENT Microcytosis PRESENT Tear Drop Cells 2+ Schistocytes 1+ Sodium Level 139 136-145 mmol/L Potassium Level 4.0 3.5-5.1 mmol/L Chloride Level 112 98-107 mmol/L Carbon Dioxide Level 24 21-32 mmol/L Anion Gap 3.0 3-11 mmol/L Blood Urea Nitrogen 8 7-18 mg/dl Creatinine 1.02 0.60-1.40 mg/dl Est Creatinine Clear Calc Drug Dose 135.7 ml/min Estimated GFR () 109.1 Estimated GFR (Non- 94.1 BUN/Creatinine Ratio 8.3 10-20 Random Glucose 90 70-99 mg/dl Calcium Level 8.2 8.5-10.1 mg/dl Phosphorus Level 3.7 2.5-4.9 mg/dl Magnesium Level 2.1 1.8-2.4 mg/dl Microbiology Results 12/09/17 MRSA DNA Surveillance Screen - Final, Complete Specimen Negative for MRSA by DNA Probe
--- NOTE | 2017-12-10 10:44 | Critical Care Progress Note ---
Critical Care Progress Note Date of Service Dec 10, 2017. ICU Day ICU Day Number: [address] Webber Subjective No overnight events, exertional dyspnea improved, no chest pain no shortness of breath Objective General: Alert. nontoxic. Skin: Warm, dry, Head: Atraumatic Ears, nose, mouth and throat: airway patent Cardiovascular: Normal peripheral perfusion Respiratory: no respiratory distress Gastrointestinal: Non distended no tenderness with palpation Musculoskeletal: No deformity Assessment & Plan Reason Critically Ill: Profound anemia with presumptive gastrointestinal losses status post 5 units packed red blood cells PLAN: CV: Exertional dyspnea secondary to profound anemia -Reviewed EKG Fluids/Renal: D5 half NS with 20 K at 75 ML's per hour GI/Nutrition: N.p.o. GI consult pending -Anticipate EGD in the near future Heme: Profound anemia -Microcytic indices, attempting to add iron studies to initial labs -Add reticulocyte count Endocrine: Blood sugars within acceptable limits Vascular access: Peripheral IVs Code Status: Full Likely candidate for downgrade after evaluation by gastroenterology Data Medications: Current Inpatient Medications Medications (Trade) Dose Ordered Sig/Magalie Route Start Time Stop Time Status Last Admin Dose Admin Ondansetron HCl (Zofran Inj) 4 mg Q6H PRN IV 12/09/17 20:45 01/08/18 20:44 Miscellaneous Information (Icu Protocol For Hyperglycemia) 1 ea PRN PRN N/A 12/09/17 20:45 12/11/17 20:44 Ioversol (Optiray 320) 100 ml UD PRN IV 12/09/17 21:15 12/13/17 21:14 Pantoprazole Sodium 40 mg/ Dextrose 100 ml @ 20 mls/hr Q5H IV 12/10/17 00:30 01/09/18 00:29 12/10/17 06:13 20 MLS/HR Vital Signs: Date Time Temp Pulse Resp B/P (MAP) Pulse Ox O2 Delivery O2 Flow Rate FiO2 12/10/17 09:30 74 20 124/71 (88) 98 Room Air 12/10/17 07:30 36.9 74 20 125/74 (91) 100 Room Air 12/10/17 07:30 Room Air 12/10/17 06:31 37.3 75 20 117/69 (85) 100 12/10/17 06:16 37.3 74 17 123/67 (85) 99 12/10/17 06:01 37.1 64 25 119/74 (89) 98 12/10/17 05:50 37.0 69 28 127/66 (86) 98 12/10/17 05:46 78 18 123/68 (86) 98 12/10/17 05:45 72 23 115/69 (84) 100 12/10/17 05:44 37.2 73 16 115/69 99 12/10/17 05:31 72 13 119/74 (89) 100 12/10/17 05:16 75 20 124/66 (85) 99 12/10/17 05:01 37.0 63 25 124/65 (84) 98 Room Air 12/10/17 04:46 71 28 109/50 (69) 98 Room Air 12/10/17 04:31 37.0 79 16 124/65 (84) 99 Room Air 12/10/17 04:20 37.0 67 23 128/70 (89) 99 Room Air 12/10/17 04:15 37.0 72 20 124/62 (82) 100 Room Air 12/10/17 04:14 37.0 73 16 124/62 99 12/10/17 04:01 67 25 126/62 (83) 98 Room Air 12/10/17 04:00 Room Air 12/10/17 03:31 70 22 120/71 (87) 99 Room Air 12/10/17 03:02 74 16 122/49 (73) 100 Room Air 12/10/17 02:31 70 26 126/65 (85) 97 Room Air 12/10/17 02:01 37.1 73 22 112/62 (79) 98 Room Air 12/10/17 01:43 37.0 78 19 123/49 (73) 99 Room Air 12/10/17 01:31 68 22 108/44 (65) 98 Room Air 12/10/17 01:16 37.1 76 20 124/65 (84) 97 Room Air 12/10/17 01:01 69 26 116/57 (76) 99 Room Air 12/10/17 00:46 37.2 75 25 112/65 (81) 99 Room Air 12/10/17 00:43 36.9 75 24 115/60 (78) 98 Room Air 12/10/17 00:37 37.1 78 20 119/57 (77) 98 Room Air 12/10/17 00:01 37.1 72 25 126/64 (84) 100 Room Air 12/09/17 23:59 Room Air 12/09/17 21:43 37.6 90 28 146/83 99 Room Air 12/09/17 21:10 87 17 121/61 98 12/09/17 21:05 84 31 125/50 98 12/09/17 21:00 84 17 138/66 98 12/09/17 20:55 85 30 129/66 98 12/09/17 20:50 95 25 141/60 98 12/09/17 20:45 86 30 135/61 98 12/09/17 20:45 37.5 84 20 141/60 98 12/09/17 20:40 83 27 121/55 97 12/09/17 20:39 140/86 12/09/17 20:35 80 21 121/58 97 12/09/17 20:30 83 31 118/58 97 12/09/17 20:25 85 31 120/55 97 12/09/17 20:20 88 34 113/59 98 12/09/17 20:15 85 25 132/70 98 12/09/17 20:15 37.1 87 18 132/70 99 12/09/17 20:10 89 25 135/70 99 12/09/17 20:05 85 18 147/74 99 12/09/17 20:00 37.6 85 18 130/70 98 12/09/17 20:00 86 38 130/70 98 12/09/17 19:48 37.4 86 18 137/65 99 Room Air 12/09/17 19:44 37.4 86 18 138/69 99 12/09/17 18:30 95 12/09/17 18:18 98 Room Air 12/09/17 17:54 37.0 101 18 129/64 100 Room Air Laboratory Results: Last 24 Hours Test 12/09/17 18:20 12/09/17 19:40 12/09/17 19:46 12/09/17 21:44 White Blood Count 8.00 K/uL Red Blood Count 2.87 M/uL Hemoglobin 3.7 g/dL Hematocrit 16.3 % Mean Corpuscular Volume 56.8 fL Mean Corpuscular Hemoglobin 12.9 pg Mean Corpuscular Hemoglobin Concent 22.7 g/dl Platelet Count 398 K/uL Neutrophils (%) (Auto) 58.8 % Lymphocytes (%) (Auto) 30.4 % Monocytes (%) (Auto) 7.5 % Eosinophils (%) (Auto) 2.1 % Basophils (%) (Auto) 0.6 % Neutrophils # (Auto) 4.70 K/uL Lymphocytes # (Auto) 2.43 K/uL Monocytes # (Auto) 0.60 K/uL Eosinophils # (Auto) 0.17 K/uL Basophils # (Auto) 0.05 K/uL Immature Granulocyte % (Auto) 0.6 % Immature Granulocyte # (Auto) 0.05 K/uL Nucleated RBC Absolute Count (auto) 0.15 K/uL Nucleated Red Blood Cells % 1.9 % Polychromasia 1+ Hypochromasia PRESENT Poikilocytosis PRESENT Microcytosis PRESENT Tear Drop Cells 1+ Ovalocytes 1+ Schistocytes 1+ Sodium Level 140 mmol/L Potassium Level 4.0 mmol/L Chloride Level 109 mmol/L Carbon Dioxide Level 23 mmol/L Anion Gap 8.0 mmol/L Blood Urea Nitrogen 10 mg/dl Creatinine 1.07 mg/dl Est Creatinine Clear Calc Drug Dose 130.2 ml/min Estimated GFR () 103.0 Estimated GFR (Non- 88.8 BUN/Creatinine Ratio 9.1 Random Glucose 91 mg/dl Calcium Level 8.3 mg/dl Phosphorus Level 3.4 mg/dl Magnesium Level 2.1 mg/dl Total Bilirubin 0.5 mg/dl Direct Bilirubin 0.1 mg/dl Aspartate Amino Transf (AST/SGOT) 29 U/L Alanine Aminotransferase (ALT/SGPT) 15 U/L Alkaline Phosphatase 42 U/L Total Creatine Kinase 58 U/L Troponin I < 0.015 ng/ml Total Protein 6.9 gm/dl Albumin 3.5 gm/dl Lipase 164 U/L Urine Color YELLOW Urine Appearance CLEAR Urine pH 6.0 Urine Specific [place] 1.020 Urine Protein NEG Urine Glucose (UA) NEG Urine Ketones NEG Urine Occult Blood NEG Urine Nitrite NEG Urine Bilirubin NEG Urine Urobilinogen NEG Urine Leukocyte Esterase NEG Prothrombin Time 10.8 SECONDS Prothromb Time International Ratio 1.0 Activated Partial Thromboplast Time 21.3 SECONDS Partial Thromboplastin Ratio 0.8 Vitamin B12 Level 366 pg/mL Folate 14.27 ng/mL Test 12/10/17 03:14 12/10/17 08:06 White Blood Count 6.17 K/uL Red Blood Count 3.27 M/uL Hemoglobin 5.8 g/dL 7.4 g/dL Hematocrit 21.0 % 25.6 % Mean Corpuscular Volume 64.2 fL Mean Corpuscular Hemoglobin 17.7 pg Mean Corpuscular Hemoglobin Concent 27.6 g/dl Platelet Count 298 K/uL Mean Platelet Volume 8.4 fL Neutrophils (%) (Auto) 59.2 % Lymphocytes (%) (Auto) 29.2 % Monocytes (%) (Auto) 7.6 % Eosinophils (%) (Auto) 3.1 % Basophils (%) (Auto) 0.6 % Neutrophils # (Auto) 3.65 K/uL Lymphocytes # (Auto) 1.80 K/uL Monocytes # (Auto) 0.47 K/uL Eosinophils # (Auto) 0.19 K/uL Basophils # (Auto) 0.04 K/uL RDW Standard Deviation 66.2 fL RDW Coefficient of Variation 29.6 % Immature Granulocyte % (Auto) 0.3 % Immature Granulocyte # (Auto) 0.02 K/uL Nucleated RBC Absolute Count (auto) 0.12 K/uL Nucleated Red Blood Cells % 1.9 % Polychromasia 1+ Hypochromasia PRESENT Anisocytosis PRESENT Microcytosis PRESENT Tear Drop Cells 2+ Schistocytes 1+ Sodium Level 139 mmol/L Potassium Level 4.0 mmol/L Chloride Level 112 mmol/L Carbon Dioxide Level 24 mmol/L Anion Gap 3.0 mmol/L Blood Urea Nitrogen 8 mg/dl Creatinine 1.02 mg/dl Est Creatinine Clear Calc Drug Dose 135.7 ml/min Estimated GFR () 109.1 Estimated GFR (Non- 94.1 BUN/Creatinine Ratio 8.3 Random Glucose 90 mg/dl Calcium Level 8.2 mg/dl Phosphorus Level 3.7 mg/dl Magnesium Level 2.1 mg/dl
[2017-12-10] MEDS: D5W AND 1/2NSS + 20MEQ KCL 1,000 ML IV SCH (11:14)
[2017-12-10 11:37] LABS: TRANSFERRIN 337 mg/dl (200-360)
[2017-12-10 12:36] LABS: RETIC COUNT % 1.4 % (0.5-2.0)
[2017-12-10 15:21] LABS: HEMATOCRIT 26.1 % (42-52); HEMOGLOBIN 7.6 g/dL (14.0-18.0)
--- NOTE | 2017-12-10 15:39 | Medical Consult ---
Consultation Note Date of Service Dec 10, 2017. Consultation Note 37 yo M with no PMH with non specific complaints of fatigue, malaise, low grade fever since last fall. He has noticed intermittent dark stools without gross blood since August. He has had more significant CHOI without CHF or aniginal symptoms since November. Denies any other GI symptoms. Denies hematuria, bruising. Takes Advil 1-2 tab every1-2 weeks, o/w no NSAIDs. No FH GI malignancy, anemia. Seen by PCP on Tuesday, found to have profound microcytic anemia, admit for xfsuion. At present, no complaint. Past Medical/Surgical History Medical Problems: (1) No significant past medical history Status: Chronic Surgical Problems: (1) Hx of appendectomy Status: Resolved (2) Hx of inguinal hernia repair Status: Resolved Family History FH: sarcoidosis FH: thyroid condition FH: uterine cancer Social History Smoking Status: Never Smoker Smokeless Tobacco Use: No Alcohol Use: none Drug Use: none Housing status: lives with family Occupational Status: employed Allergies Coded Allergies: No Known Allergies (Unverified , 12/09/17) Home Medications No Active Prescriptions or Reported Meds Review of Systems See HPI for pertinent positives & negatives. All other systems reviewed and were otherwise negative Physical Exam H&P v2 Physical Exam Vital Signs Date Time Temp Pulse Resp B/P (MAP) Pulse Ox O2 Delivery O2 Flow Rate FiO2 12/10/17 13:30 36.6 64 18 118/73 (88) 98 Room Air 12/10/17 11:30 Room Air 12/10/17 11:30 37.0 72 20 127/75 (92) 98 Room Air 12/10/17 09:46 72 29 128/73 (91) 98 12/10/17 09:45 70 23 98 12/10/17 09:35 65 27 124/71 (88) 98 12/10/17 09:30 74 20 124/71 (88) 98 Room Air 12/10/17 09:30 65 25 96 12/10/17 09:15 73 28 97 12/10/17 09:00 61 21 96 12/10/17 08:45 64 25 96 12/10/17 08:30 68 17 98 12/10/17 08:15 67 22 98 12/10/17 08:01 70 25 128/74 (92) 99 12/10/17 08:00 80 19 98 12/10/17 07:47 70 16 96/49 (65) 100 12/10/17 07:45 68 22 100 12/10/17 07:31 67 26 124/66 (85) 98 12/10/17 07:30 73 26 98 12/10/17 07:30 36.9 74 20 125/74 (91) 100 Room Air 12/10/17 07:30 Room Air 12/10/17 07:16 63 25 125/74 (91) 98 12/10/17 07:15 63 24 98 12/10/17 07:01 70 25 128/76 (93) 97 12/10/17 07:00 67 19 99 12/10/17 06:31 37.3 75 20 117/69 (85) 100 12/10/17 06:16 37.3 74 17 123/67 (85) 99 12/10/17 06:01 37.1 64 25 119/74 (89) 98 12/10/17 05:50 37.0 69 28 127/66 (86) 98 12/10/17 05:46 78 18 123/68 (86) 98 12/10/17 05:45 72 23 115/69 (84) 100 12/10/17 05:44 37.2 73 16 115/69 99 12/10/17 05:31 72 13 119/74 (89) 100 12/10/17 05:16 75 20 124/66 (85) 99 12/10/17 05:01 37.0 63 25 124/65 (84) 98 Room Air 12/10/17 04:46 71 28 109/50 (69) 98 Room Air 12/10/17 04:31 37.0 79 16 124/65 (84) 99 Room Air 12/10/17 04:20 37.0 67 23 128/70 (89) 99 Room Air 12/10/17 04:15 37.0 72 20 124/62 (82) 100 Room Air 12/10/17 04:14 37.0 73 16 124/62 99 12/10/17 04:01 67 25 126/62 (83) 98 Room Air 12/10/17 04:00 Room Air 12/10/17 03:31 70 22 120/71 (87) 99 Room Air 12/10/17 03:02 74 16 122/49 (73) 100 Room Air 12/10/17 02:31 70 26 126/65 (85) 97 Room Air 12/10/17 02:01 37.1 73 22 112/62 (79) 98 Room Air 12/10/17 01:43 37.0 78 19 123/49 (73) 99 Room Air 12/10/17 01:31 68 22 108/44 (65) 98 Room Air 12/10/17 01:16 37.1 76 20 124/65 (84) 97 Room Air 12/10/17 01:01 69 26 116/57 (76) 99 Room Air 12/10/17 00:46 37.2 75 25 112/65 (81) 99 Room Air 12/10/17 00:43 36.9 75 24 115/60 (78) 98 Room Air 12/10/17 00:37 37.1 78 20 119/57 (77) 98 Room Air 12/10/17 00:01 37.1 72 25 126/64 (84) 100 Room Air 12/09/17 23:59 Room Air 12/09/17 21:43 37.6 90 28 146/83 99 Room Air 12/09/17 21:10 87 17 121/61 98 12/09/17 21:05 84 31 125/50 98 12/09/17 21:00 84 17 138/66 98 12/09/17 20:55 85 30 129/66 98 12/09/17 20:50 95 25 141/60 98 12/09/17 20:45 86 30 135/61 98 12/09/17 20:45 37.5 84 20 141/60 98 12/09/17 20:40 83 27 121/55 97 18 20:39 140/86 12/09/17 20:35 80 21 121/58 97 12/09/17 20:30 83 31 118/58 97 12/09/17 20:25 85 31 120/55 97 12/09/17 20:20 88 34 113/59 98 12/09/17 20:15 85 25 132/70 98 12/09/17 20:15 37.1 87 18 132/70 99 12/09/17 20:10 89 25 135/70 99 12/09/17 20:05 85 18 147/74 99 12/09/17 20:00 37.6 85 18 130/70 98 12/09/17 20:00 86 38 130/70 98 12/09/17 19:48 37.4 86 18 137/65 99 Room Air 12/09/17 19:44 37.4 86 18 138/69 99 12/09/17 18:30 95 12/09/17 18:18 98 Room Air 12/09/17 17:54 37.0 101 18 129/64 100 Room Air General Appearance: WD/WN, no apparent distress, mildly obese Head: normocephalic, atraumatic Eyes: PERRL, EOMI, sclerae anicteric but pale ENT: hearing grossly normal, pharynx normal Neck: supple, trachea midline Respiratory/Chest: lungs clear, normal breath sounds, no respiratory distress Cardiovascular: regular rate, rhythm, no murmur, normal peripheral pulses Abdomen/GI: normal bowel sounds, non tender, soft Extremities/Musculoskelatal: normal inspection, normal capillary refill, no pedal edema, normal range of motion, non-tender Neurologic/Psych: alert, normal mood/affect, oriented x 3 Skin: warm/dry, pale. No ecchymoses. CXR: IMPRESSION: No active disease in the chest. EKG EKG: NSR, rate 91 Last 24 Hours Test 12/09/17 18:20 12/09/17 19:40 12/09/17 19:46 12/09/17 21:44 White Blood Count 8.00 K/uL Red Blood Count 2.87 M/uL Hemoglobin 3.7 g/dL Hematocrit 16.3 % Mean Corpuscular Volume 56.8 fL Mean Corpuscular Hemoglobin 12.9 pg Mean Corpuscular Hemoglobin Concent 22.7 g/dl Platelet Count 398 K/uL Neutrophils (%) (Auto) 58.8 % Lymphocytes (%) (Auto) 30.4 % Monocytes (%) (Auto) 7.5 % Eosinophils (%) (Auto) 2.1 % Basophils (%) (Auto) 0.6 % Neutrophils # (Auto) 4.70 K/uL Lymphocytes # (Auto) 2.43 K/uL Monocytes # (Auto) 0.60 K/uL Eosinophils # (Auto) 0.17 K/uL Basophils # (Auto) 0.05 K/uL Immature Granulocyte % (Auto) 0.6 % Immature Granulocyte # (Auto) 0.05 K/uL Nucleated RBC Absolute Count (auto) 0.15 K/uL Nucleated Red Blood Cells % 1.9 % Polychromasia 1+ Hypochromasia PRESENT Poikilocytosis PRESENT Microcytosis PRESENT Tear Drop Cells 1+ Ovalocytes 1+ Schistocytes 1+ Sodium Level 140 mmol/L Potassium Level 4.0 mmol/L Chloride Level 109 mmol/L Carbon Dioxide Level 23 mmol/L Anion Gap 8.0 mmol/L Blood Urea Nitrogen 10 mg/dl Creatinine 1.07 mg/dl Est Creatinine Clear Calc Drug Dose 130.2 ml/min Estimated GFR () 103.0 Estimated GFR (Non- 88.8 BUN/Creatinine Ratio 9.1 Random Glucose 91 mg/dl Calcium Level 8.3 mg/dl Phosphorus Level 3.4 mg/dl Magnesium Level 2.1 mg/dl Total Bilirubin 0.5 mg/dl Direct Bilirubin 0.1 mg/dl Aspartate Amino Transf (AST/SGOT) 29 U/L Alanine Aminotransferase (ALT/SGPT) 15 U/L Alkaline Phosphatase 42 U/L Total Creatine Kinase 58 U/L Troponin I < 0.015 ng/ml Total Protein 6.9 gm/dl Albumin 3.5 gm/dl Lipase 164 U/L Urine Color YELLOW Urine Appearance CLEAR Urine pH 6.0 Urine Specific [place] 1.020 Urine Protein NEG Urine Glucose (UA) NEG Urine Ketones NEG Urine Occult Blood NEG Urine Nitrite NEG Urine Bilirubin NEG Urine Urobilinogen NEG Urine Leukocyte Esterase NEG Prothrombin Time 10.8 SECONDS Prothromb Time International Ratio 1.0 Activated Partial Thromboplast Time 21.3 SECONDS Partial Thromboplastin Ratio 0.8 Vitamin B12 Level 366 pg/mL Folate 14.27 ng/mL Test 12/10/17 03:14 12/10/17 08:06 12/10/17 10:58 12/10/17 14:49 White Blood Count 6.17 K/uL Red Blood Count 3.27 M/uL Hemoglobin 5.8 g/dL 7.4 g/dL 7.6 g/dL Hematocrit 21.0 % 25.6 % 26.1 % Mean Corpuscular Volume 64.2 fL Mean Corpuscular Hemoglobin 17.7 pg Mean Corpuscular Hemoglobin Concent 27.6 g/dl Platelet Count 298 K/uL Mean Platelet Volume 8.4 fL Neutrophils (%) (Auto) 59.2 % Lymphocytes (%) (Auto) 29.2 % Monocytes (%) (Auto) 7.6 % Eosinophils (%) (Auto) 3.1 % Basophils (%) (Auto) 0.6 % Neutrophils # (Auto) 3.65 K/uL Lymphocytes # (Auto) 1.80 K/uL Monocytes # (Auto) 0.47 K/uL Eosinophils # (Auto) 0.19 K/uL Basophils # (Auto) 0.04 K/uL RDW Standard Deviation 66.2 fL RDW Coefficient of Variation 29.6 % Immature Granulocyte % (Auto) 0.3 % Immature Granulocyte # (Auto) 0.02 K/uL Nucleated RBC Absolute Count (auto) 0.12 K/uL Nucleated Red Blood Cells % 1.9 % Polychromasia 1+ Hypochromasia PRESENT Anisocytosis PRESENT Microcytosis PRESENT Tear Drop Cells 2+ Schistocytes 1+ Sodium Level 139 mmol/L Potassium Level 4.0 mmol/L Chloride Level 112 mmol/L Carbon Dioxide Level 24 mmol/L Anion Gap 3.0 mmol/L Blood Urea Nitrogen 8 mg/dl Creatinine 1.02 mg/dl Est Creatinine Clear Calc Drug Dose 135.7 ml/min Estimated GFR () 109.1 Estimated GFR (Non- 94.1 BUN/Creatinine Ratio 8.3 Random Glucose 90 mg/dl Calcium Level 8.2 mg/dl Phosphorus Level 3.7 mg/dl Magnesium Level 2.1 mg/dl Absolute Reticulocyte Count 0.05 10^6/uL Percent Reticulocyte Count 1.4 % Iron Level 29 mcg/dl Total Iron Binding Capacity 429 mcg/dl Transferrin 337 mg/dl Transferrin % Saturation 6 % Bedside Glucose 98 mg/dl Impression H&P v2 Impression Assessment and Plan Dark stool since Sep, Marked microcytic anemia, low trans sat - No evidence of acute GIB - no need PPI gtt. - Plan for EGD and cscopy on Tuesday to for occult ca, PUD, celiac spue. Clear liquids for now and Cscopy prep tomorrow.
[2017-12-10 21:34] LABS: HEMATOCRIT 26.4 % (42-52); HEMOGLOBIN 7.6 g/dL (14.0-18.0)
[2017-12-11] VITALS (7 sets, daily range): BP systolic 111–146; BP diastolic 51–82; PULSE 65–78; TEMP 36.6–37; O2SAT 94–100
[2017-12-11] MEDS: D5W AND 1/2NSS + 20MEQ KCL 1,000 ML IV SCH ×2 (00:24→13:45)
[2017-12-11 02:56] LABS: HEMATOCRIT 27.5 % (42-52); HEMOGLOBIN 7.9 g/dL (14.0-18.0); MEAN CELL VOLUME 67.2 fL (80-100); MEAN CORPUSCULAR HEMOGLOBIN 19.3 pg (25-34); NUCLEATED RED BLOOD CELL ABS 0.13 K/uL (0-0); PLATELET COUNT 269 K/uL (130-400); RED CELL DISTRIBUTION WIDTH CV 29.7 % (11.5-14.5); WHITE BLOOD COUNT 6.99 K/uL (4.8-10.8)
[2017-12-11 03:08] LABS: CALCIUM 8.1 mg/dl (8.5-10.1); PHOSPHORUS 4.1 mg/dl (2.5-4.9)
[2017-12-11 03:13] LABS: BASO % 0.4 %; BASO ABS # 0.03 K/uL (0-0.2); EOS % 4.1 %; EOS ABS # 0.29 K/uL (0-0.5); IG# 0.01 K/uL (0.00-0.02); LYMPH % 32.2 %; LYMPH ABS # 2.25 K/uL (1.2-3.4); MONO % 6.6 %; MONO ABS # 0.46 K/uL (0.11-0.59); NEUT % 56.6 %; NEUT ABS # 3.95 K/uL (1.4-6.5)
[2017-12-11 03:14] LABS: MEAN CORPUSCULAR HGB CONC 28.7 g/dl (32-36)
--- NOTE | 2017-12-11 08:55 | Progress Note ---
Internal Med Progress Note Date of Service: Dec 11, 2017. Provider Documentation: SUBJECTIVE: seen and examined at bedside Feels much better today Denies chest pain, SOB, nausea, dizziness, abdominal pain No bleeding issues currently No other complaints Planned for endoscopy/Colonoscopy tomorrow OBJECTIVE: Vital Signs-as noted below Physical Exam: General Appearance:Moderately built and nourished, no apparent distress Head: normocephalic, Atraumatic Eyes: normal inspection, EOMI, PERRL Neck: supple, Trachea midline Respiratory/Chest: Normal breath sounds, CTA Cardiovascular: S1, S2, No murmur Abdomen/GI:Soft, Non tender, Bowel sounds present Extremities/Musculoskelatal:normal inspection, no edema Neurologic/Psych:AAOX3, grossly no focal neurological deficits Skin: normal color, warm Lab data as noted below. ASSESSMENT & PLAN: Profound microcytic Anemia: ? Chronic GI bleeding: H/O melena intermittently, CHOI S/P 5 units PRBCs IV Protonix discontinued IV Fluids Vitamin B12 and folate:normal CT abd: gastritis, large hiatal hernia Stool studies: pending Appreciate GI Input monitor H&H Hb: 7.9 today clear liquid diet NPO after midnight Avoid NSAIDs Planned for Endoscopy/Colonoscopy tomorrow DVT Px: SCDs Disposition: Expect to discharge home when stable Vital Signs: Date Time Temp Pulse Resp B/P (MAP) Pulse Ox O2 Delivery O2 Flow Rate FiO2 12/11/17 08:00 Room Air 12/11/17 07:57 36.6 65 18 127/72 (90) 100 12/11/17 04:00 Room Air 12/11/17 02:40 36.6 69 20 125/70 (88) 100 Room Air 12/11/17 00:04 Room Air 12/10/17 23:30 37.0 72 20 113/66 (82) 99 Room Air 12/10/17 20:00 Room Air 12/10/17 19:38 37.2 62 16 124/59 (80) 99 Room Air 12/10/17 16:25 83 18 157/72 (100) 95 Room Air 12/10/17 16:25 Room Air 12/10/17 16:13 36.6 64 18 98 12/10/17 15:30 Room Air 12/10/17 13:30 36.6 64 18 118/73 (88) 98 Room Air 12/10/17 11:30 Room Air 12/10/17 11:30 37.0 72 20 127/75 (92) 98 Room Air 12/10/17 09:46 72 29 128/73 (91) 98 12/10/17 09:45 70 23 98 12/10/17 09:35 65 27 124/71 (88) 98 12/10/17 09:30 74 20 124/71 (88) 98 Room Air 12/10/17 09:30 65 25 96 12/10/17 09:15 73 28 97 12/10/17 09:00 61 21 96 Lab Results: Results Past 24 Hours Test 12/10/17 10:58 12/10/17 14:49 12/10/17 20:09 12/10/17 20:53 Range/Units Bedside Glucose 98 87 70-99 mg/dl Hemoglobin 7.6 7.6 14.0-18.0 g/dL Hematocrit 26.1 26.4 42-52 % Test 12/11/17 02:33 12/11/17 06:40 12/11/17 08:33 Range/Units White Blood Count 6.99 4.8-10.8 K/uL Red Blood Count 4.09 4.7-6.1 M/uL Hemoglobin 7.9 14.0-18.0 g/dL Hematocrit 27.5 42-52 % Mean Corpuscular Volume 67.2 80-100 fL Mean Corpuscular Hemoglobin 19.3 25-34 pg Mean Corpuscular Hemoglobin Concent 28.7 32-36 g/dl Platelet Count 269 130-400 K/uL Neutrophils (%) (Auto) 56.6 % Lymphocytes (%) (Auto) 32.2 % Monocytes (%) (Auto) 6.6 % Eosinophils (%) (Auto) 4.1 % Basophils (%) (Auto) 0.4 % Neutrophils # (Auto) 3.95 1.4-6.5 K/uL Lymphocytes # (Auto) 2.25 1.2-3.4 K/uL Monocytes # (Auto) 0.46 0.11-0.59 K/uL Eosinophils # (Auto) 0.29 0-0.5 K/uL Basophils # (Auto) 0.03 0-0.2 K/uL RDW Standard Deviation 70.0 36.4-46.3 fL RDW Coefficient of Variation 29.7 11.5-14.5 % Immature Granulocyte % (Auto) 0.1 % Immature Granulocyte # (Auto) 0.01 0.00-0.02 K/uL Nucleated RBC Absolute Count (auto) 0.13 0-0 K/uL Nucleated Red Blood Cells % 1.8 % Hypochromasia PRESENT Anisocytosis PRESENT Microcytosis PRESENT Tear Drop Cells 1+ Sodium Level 141 136-145 mmol/L Potassium Level 4.0 3.5-5.1 mmol/L Chloride Level 112 98-107 mmol/L Carbon Dioxide Level 24 21-32 mmol/L Anion Gap 5.0 3-11 mmol/L Blood Urea Nitrogen 8 7-18 mg/dl Creatinine 1.00 0.60-1.40 mg/dl Est Creatinine Clear Calc Drug Dose 139.7 ml/min Estimated GFR () 111.7 Estimated GFR (Non- 96.4 BUN/Creatinine Ratio 7.8 10-20 Random Glucose 90 70-99 mg/dl Calcium Level 8.1 8.5-10.1 mg/dl Phosphorus Level 4.1 2.5-4.9 mg/dl Magnesium Level 2.2 1.8-2.4 mg/dl Bedside Glucose 98 70-99 mg/dl
[2017-12-11 08:59] LABS: HEMATOCRIT 27.7 % (42-52); HEMOGLOBIN 7.8 g/dL (14.0-18.0)
[2017-12-11 15:02] LABS: HEMATOCRIT 27.7 % (42-52); HEMOGLOBIN 7.9 g/dL (14.0-18.0)
[2017-12-11] MEDS ORDERED: BISACODYL 5 MG TABEC PO STA (17:00)
[2017-12-11] MEDS ORDERED: LAVAGE SOLUTION 4000ML PO SCH (17:30)
--- NOTE | 2017-12-11 18:06 | Progress Note ---
Progress Note Date of Service Dec 11, 2017. Progress Note No complaints, no evidence of acute GIB.. s/p 5 units blood yest. VSS Exam unchanged from yest Labs reviewed A/P: Profound microcytic anemia DDX = PUD, Taz's ulceration, occult malignancy - EGD/ csocpy tomorrow. Anticipate d/c after scopes.
[2017-12-12 03:47] VITALS: BP 109/58; PULSE 81; TEMP 36.7; O2SAT 98
[2017-12-12 05:10] VITALS: Ht 182.9 cm; Wt 123.9 kg
[2017-12-12 06:41] LABS: HEMATOCRIT 27.4 % (42-52); HEMOGLOBIN 7.9 g/dL (14.0-18.0); MEAN CELL VOLUME 67.7 fL (80-100); MEAN CORPUSCULAR HEMOGLOBIN 19.5 pg (25-34); MEAN CORPUSCULAR HGB CONC 28.8 g/dl (32-36); NUCLEATED RED BLOOD CELL ABS 0.07 K/uL (0-0); PLATELET COUNT 280 K/uL (130-400); RED CELL DISTRIBUTION WIDTH CV 30.7 % (11.5-14.5); RED CELL DISTRIBUTION WIDTH SD 72.6 fL (36.4-46.3); WHITE BLOOD COUNT 6.21 K/uL (4.8-10.8)
[2017-12-12 07:03] LABS: CALCIUM 8.1 mg/dl (8.5-10.1); CREATININE 0.95 mg/dl (0.60-1.40); PHOSPHORUS 4.3 mg/dl (2.5-4.9); POTASSIUM 3.8 mmol/L (3.5-5.1)
[2017-12-12 07:14] LABS: BASO % 0.6 %; BASO ABS # 0.04 K/uL (0-0.2); EOS % 4.5 %; EOS ABS # 0.28 K/uL (0-0.5); LYMPH % 25.9 %; LYMPH ABS # 1.61 K/uL (1.2-3.4); MONO % 7.6 %; MONO ABS # 0.47 K/uL (0.11-0.59); NEUT % 61.4 %; NEUT ABS # 3.81 K/uL (1.4-6.5)
[2017-12-12 07:46] VITALS: BP 138/76; PULSE 69; TEMP 37; O2SAT 97
--- NOTE | 2017-12-12 08:55 | Clinical Documentation Query ---
CLINICAL DOCUMENTATION QUERY 37 year old male who presents to the Emergency Room with complaints of a hemoglobin of 4.1. In your clinical opinion is this patient being managed for: ( ) Suspected GI Malignancy evidenced by profound chronic GI bleeding. ( ) Not Agree ( ) Other explanation of clinical findings (Please Explain. If no explanation given, this would be considered a no response.) ( X ) Unable to determine. ( ) Need to Discuss (Please call CDS via extension or qliq. If no interaction occurs this is considered a no response.) The medical record reflects the following clinical findings, treatment, and risk factors. Clinical Indicators: Hgb 3.7, Hct 16.3. Reports of black colored stools for past 10 days. Treatment: Q 6 hr H/H, 5 units of PRBC's, EGD, Colonoscopy, ICU hemodynamic monitoring, GI consult Risk Factors: Anemia Please clarify and document your clinical opinion in the progress notes and discharge summary. Terms such as "probable", "suspected", "likely", "questionable", "possible", or "still to be ruled out" are acceptable. IF IN AGREEMENT, YOU MUST DOCUMENT ABOVE DIAGNOSTIC STATEMENT IN DAILY PROGRESS NOTES AND DISCHARGE SUMMARY. This document is not part of the patient's record. Thank You, Jose Jasso RN [phone] & via [email or web address]
--- NOTE | 2017-12-12 09:53 | Progress Note ---
Internal Med Progress Note Date of Service: Dec 12, 2017. Provider Documentation: SUBJECTIVE: seen and examined at bedside No complaints Denies chest pain, SOB, nausea, dizziness, abdominal pain Planned for endoscopy/Colonoscopy today Family at bedside OBJECTIVE: Vital Signs-as noted below Physical Exam: General Appearance:Moderately built and nourished, no apparent distress Head: normocephalic, Atraumatic Eyes: normal inspection, EOMI, PERRL Neck: supple, Trachea midline Respiratory/Chest: Normal breath sounds, CTA Cardiovascular: S1, S2, No murmur Abdomen/GI:Soft, Non tender, Bowel sounds present Extremities/Musculoskelatal:normal inspection, no edema Neurologic/Psych:AAOX3, grossly no focal neurological deficits Skin: normal color, warm Lab data as noted below. ASSESSMENT & PLAN: Profound microcytic Anemia: Chronic GI bleeding: H/O melena intermittently, CHOI S/P 5 units PRBCs IV Protonix discontinued IV Fluids Vitamin B12 and folate:normal CT abd: gastritis, large hiatal hernia C.diff: negative Appreciate GI Input monitor H&H Hb: 7.9 today Avoid NSAIDs Colonoscopy showed Internal Hemorrhoids Endoscopy:Hiatal Hernia, Grade B reflex Esophagitis, Esophageal Mucosal Nodule Hb stable Plan to DC on Protonix 40mg daily Iron supplements for 6 weeks Needs repeat EGD in 8-12 weeks DVT Px: SCDs Disposition: Expect to discharge home today Follow up with your PCP on 12/15/17 at 10:45AM Follow up with your Linoleum Installer for repeat EGD as advised Seek immediate medical attention if your symptoms reoccur or worsen Vital Signs: Date Time Temp Pulse Resp B/P (MAP) Pulse Ox O2 Delivery O2 Flow Rate FiO2 12/12/17 15:33 36.9 72 18 149/61 (90) 98 Room Air 12/12/17 12:18 36.9 71 16 157/74 (101) 100 Room Air 12/12/17 12:00 Room Air 12/12/17 11:38 68 16 117/70 (86) 100 Room Air 12/12/17 11:23 79 18 104/44 (64) 100 Room Air 12/12/17 10:28 36.9 65 20 148/91 (110) 98 Room Air 12/12/17 08:00 Room Air 12/12/17 07:46 37.0 69 19 138/76 (96) 97 Room Air 12/12/17 04:09 Room Air 12/12/17 03:47 36.7 81 18 109/58 (75) 98 Room Air 12/12/17 00:02 Room Air 12/11/17 23:45 37.0 78 18 146/71 (96) 100 Room Air 12/11/17 20:00 Room Air 12/11/17 19:41 36.8 73 16 139/82 (101) 98 Room Air 12/11/17 16:00 Room Air Lab Results: Results Past 24 Hours Test 12/11/17 19:30 12/12/17 05:48 Range/Units White Blood Count 6.21 4.8-10.8 K/uL Red Blood Count 4.05 4.7-6.1 M/uL Hemoglobin 7.9 14.0-18.0 g/dL Hematocrit 27.4 42-52 % Mean Corpuscular Volume 67.7 80-100 fL Mean Corpuscular Hemoglobin 19.5 25-34 pg Mean Corpuscular Hemoglobin Concent 28.8 32-36 g/dl Platelet Count 280 130-400 K/uL Neutrophils (%) (Auto) 61.4 % Lymphocytes (%) (Auto) 25.9 % Monocytes (%) (Auto) 7.6 % Eosinophils (%) (Auto) 4.5 % Basophils (%) (Auto) 0.6 % Neutrophils # (Auto) 3.81 1.4-6.5 K/uL Lymphocytes # (Auto) 1.61 1.2-3.4 K/uL Monocytes # (Auto) 0.47 0.11-0.59 K/uL Eosinophils # (Auto) 0.28 0-0.5 K/uL Basophils # (Auto) 0.04 0-0.2 K/uL RDW Standard Deviation 72.6 36.4-46.3 fL RDW Coefficient of Variation 30.7 11.5-14.5 % Immature Granulocyte % (Auto) 0.0 % Immature Granulocyte # (Auto) 0.00 0.00-0.02 K/uL Nucleated RBC Absolute Count (auto) 0.07 0-0 K/uL Nucleated Red Blood Cells % 1.1 % Hypochromasia PRESENT Anisocytosis PRESENT Microcytosis PRESENT Tear Drop Cells 1+ Sodium Level 143 136-145 mmol/L Potassium Level 3.8 3.5-5.1 mmol/L Chloride Level 110 98-107 mmol/L Carbon Dioxide Level 25 21-32 mmol/L Anion Gap 8.0 3-11 mmol/L Blood Urea Nitrogen 6 7-18 mg/dl Creatinine 0.95 0.60-1.40 mg/dl Est Creatinine Clear Calc Drug Dose 146.2 ml/min Estimated GFR () 118.9 Estimated GFR (Non- 102.6 BUN/Creatinine Ratio 6.5 10-20 Random Glucose 87 70-99 mg/dl Calcium Level 8.1 8.5-10.1 mg/dl Phosphorus Level 4.3 2.5-4.9 mg/dl Magnesium Level 2.1 1.8-2.4 mg/dl Microbiology Results 12/11/17 C.difficile Toxin B Gene (PCR) - Final, Complete No C. difficile toxin B gene detected 12/11/17 WBC Smear - Final, Resulted 12/11/17 Shiga Toxin Test - Preliminary, Resulted No E. Coli shiga toxin 1 or shiga tox... 12/11/17 Stool Culture - Preliminary, Resulted NO SALMONELLA ISOLATED TO DATE,...
--- NOTE | 2017-12-12 10:42 | Endo History and Physical ---
History & Physical Date of Service: Dec 12, 2017. Chief Complaint: Anemia Referring Physician: History of Present Illness Patient with iron deficiency anemia for upper endoscopy and colonoscopy today. Social History Smoking Status: Never Smoker Smokeless Tobacco Use: No Hx Substance Use: No Hx Alcohol Use: Yes Allergies Coded Allergies: No Known Allergies (Unverified , 12/09/17) Current Medications Reported Home Medications Medications Dose Route/Sig Max Daily Dose Days Date Category No Active Prescriptions or Reported Medications Rx Vital Signs Weight (Kilograms): 123.900 Height (Feet): 6 Height (Inches): 0.00 Date Time Temp Pulse Resp B/P (MAP) Pulse Ox O2 Delivery O2 Flow Rate FiO2 12/12/17 10:28 36.9 65 20 148/91 (110) 98 Room Air 12/12/17 08:00 Room Air 12/12/17 07:46 37.0 69 19 138/76 (96) 97 Room Air 12/12/17 04:09 Room Air 12/12/17 03:47 36.7 81 18 109/58 (75) 98 Room Air 12/12/17 00:02 Room Air 12/11/17 23:45 37.0 78 18 146/71 (96) 100 Room Air 12/11/17 20:00 Room Air 12/11/17 19:41 36.8 73 16 139/82 (101) 98 Room Air 12/11/17 16:00 Room Air 12/11/17 15:34 36.9 75 16 111/72 (85) 98 Room Air 12/11/17 12:11 36.6 75 18 119/51 (73) 94 12/11/17 12:00 Room Air 12/11/17 11:53 36.7 71 18 120/73 (89) 100 Physical Exam General Appearance: no apparent distress Respiratory/Chest: Auscultation: breath sounds normal Cardiovascular: Heart Auscultation: RRR Abdomen: Bowel Sounds: normal Assessment and Plan EGD and colonoscopy today for evaluation of microcytic anemia. We discussed the risks to include bleeding, infection, perforation, pain and missed colonic polyps.
[2017-12-12] MEDS ORDERED: MIDAZOLAM HCL 1 MG/ML 2ML VIAL ONE (10:52)
[2017-12-12] MEDS ORDERED: LIDOCAINE HCL 2% 2 ML VIAL (20MG/ML) ONE (11:26)
[2017-12-12] MEDS ORDERED: PROPOFOL IV EMULSION 10 MG/ML 20 ML VIAL ONE (11:26)
--- NOTE | 2017-12-12 11:29 | GI REPORT ---
Patient Name: Leonard Olivia Procedure Date: 12/12/2017 10:54 AM Date of : 1980 Admit Type: Inpatient Age: 37 Gender: Male Attending MD: Radha Torres DO Procedure: Colonoscopy Providers: Radha Torres DO Referring MD: Cortez Nieves, Donald Greenberg Md Indications: Unexplained iron deficiency anemia Medicines: Monitored Anesthesia Care Complications: No immediate complications. Estimated blood loss: Minimal. Estimated Blood Loss: Estimated blood loss was minimal. Procedure: Pre-Anesthesia Assessment: - Prior to the procedure, a History and Physical was performed, and patient medications, allergies and sensitivities were reviewed. The patient's tolerance of previous anesthesia was reviewed. - The risks and benefits of the procedure and the sedation options and risks were discussed with the patient. All questions were answered and informed consent was obtained. - Patient identification and proposed procedure were verified prior to the procedure by the physician, the nurse and the supervisor shuttle fitting. The procedure was verified in the procedure room. - Pre-procedure physical examination revealed no contraindications to sedation. - ASA Grade Assessment: III - A patient with severe systemic disease. - After reviewing the risks and benefits, the patient was deemed in satisfactory condition to undergo the procedure. - The anesthesia plan was to use monitored anesthesia care (MAC). - Immediately prior to administration of medications, the patient was re-assessed for adequacy to receive sedatives. - The heart rate, respiratory rate, oxygen saturations, blood pressure, adequacy of pulmonary ventilation, and response to care were monitored throughout the procedure. - The physical status of the patient was re-assessed after the procedure. After I obtained informed consent, the scope was passed under direct vision. Throughout the procedure, the patient's blood pressure, pulse, and oxygen saturations were monitored continuously. The On-site loaner was introduced through the anus and advanced to the cecum, identified by appendiceal orifice and ileocecal valve. The colonoscopy was performed without difficulty. The patient tolerated the procedure well. The quality of the bowel preparation was good. Findings: The perianal and digital rectal examinations were normal. Pertinent negatives include normal sphincter tone. Internal hemorrhoids were found during retroflexion. The hemorrhoids were mild. The exam was otherwise without abnormality. Impression: - Internal hemorrhoids. - The examination was otherwise normal. - No specimens collected. Recommendation: - Return patient to [facility] for ongoing care. - Repeat colonoscopy for screening purposes at age 51. Radha Torres D.O. Radha Torres, 12/12/2017 11:28:41 AM This report has been signed electronically. Note Initiated On: 12/12/2017 10:54 AM Number of Addenda: 0 I attest to the content of the Intraoperative Record and orders documented therein, exceptions below {[id number]}
--- NOTE | 2017-12-12 11:33 | GI REPORT ---
Patient Name: Leonard Olivia Procedure Date: 12/12/2017 10:53 AM Date of : 1980 Admit Type: Inpatient Age: 37 Gender: Male Attending MD: Radha Torres DO Procedure: Upper GI endoscopy Providers: Radha Torres DO Referring MD: Cortez Nieves, Donald Greenberg Md Indications: Suspected upper gastrointestinal bleeding in patient with unexplained iron deficiency anemia Medicines: Monitored Anesthesia Care Complications: No immediate complications. Estimated blood loss: Minimal. Estimated Blood Loss: Estimated blood loss was minimal. Procedure: Pre-Anesthesia Assessment: - Prior to the procedure, a History and Physical was performed, and patient medications, allergies and sensitivities were reviewed. The patient's tolerance of previous anesthesia was reviewed. - The risks and benefits of the procedure and the sedation options and risks were discussed with the patient. All questions were answered and informed consent was obtained. - Patient identification and proposed procedure were verified prior to the procedure by the physician, the nurse and the business development recruiter. The procedure was verified in the procedure room. - Pre-procedure physical examination revealed no contraindications to sedation. - ASA Grade Assessment: III - A patient with severe systemic disease. - After reviewing the risks and benefits, the patient was deemed in satisfactory condition to undergo the procedure. - The anesthesia plan was to use monitored anesthesia care (MAC). - Immediately prior to administration of medications, the patient was re-assessed for adequacy to receive sedatives. - The heart rate, respiratory rate, oxygen saturations, blood pressure, adequacy of pulmonary ventilation, and response to care were monitored throughout the procedure. - The physical status of the patient was re-assessed after the procedure. After obtaining informed consent, the endoscope was passed under direct vision. Throughout the procedure, the patient's blood pressure, pulse, and oxygen saturations were monitored continuously. The scope was introduced through the mouth, and advanced to the third part of duodenum. The upper GI endoscopy was accomplished without difficulty. The patient tolerated the procedure well. Findings: The upper third of the esophagus and middle third of the esophagus were normal. A medium-sized hiatal hernia was found. The proximal extent of the gastric folds (end of tubular esophagus) was 36 cm from the incisors. The hiatal narrowing was 41 cm from the incisors. The Z-line was 36 cm from the incisors. LA Grade B (one or more mucosal breaks greater than 5 mm, not extending between the tops of two mucosal folds) esophagitis with no bleeding was found at the gastroesophageal junction. A single 10 mm mucosal nodule with a localized distribution was found at the gastroesophageal junction, 36 cm from the incisors. Biopsies were taken with a cold forceps for histology. Estimated blood loss was minimal. The gastric fundus, gastric body, incisura and gastric antrum were normal. The examined duodenum was normal. Biopsies for histology were taken with a cold forceps for evaluation of celiac disease. Estimated blood loss was minimal. Impression: - Normal upper third of esophagus and middle third of esophagus. - Medium-sized hiatal hernia. - LA Grade B reflux esophagitis. - Mucosal nodule found in the esophagus. Biopsied. - Normal gastric fundus, gastric body, incisura and antrum. - Normal examined duodenum. Biopsied. Recommendation: - Perform a colonoscopy today. - Use Prilosec (omeprazole) 40 mg PO daily. - Ferrous sulfate at 325 mg orally BID for 6 weeks. - Await pathology results. - Repeat EGD in 8-12 weeks. Radha Torres D.O. Radha Torres DO 12/12/2017 11:33:02 AM This report has been signed electronically. Note Initiated On: 12/12/2017 10:53 AM Number of Addenda: 0 I attest to the content of the Intraoperative Record and orders documented therein, exceptions below {[id number]}
--- NOTE | 2017-12-12 11:50 | Anesthesiology Progress Note ---
Anesthesia Post Op Note Date & Time Dec 12, 2017 at 11:49 Vital Signs Pain Intensity: 0.0 Vital Signs Past 12 Hours Date Time Temp Pulse Resp B/P (MAP) Pulse Ox O2 Delivery O2 Flow Rate FiO2 12/12/17 11:38 68 16 117/70 (86) 100 Room Air 12/12/17 11:23 79 18 104/44 (64) 100 Room Air 12/12/17 10:28 36.9 65 20 148/91 (110) 98 Room Air 12/12/17 08:00 Room Air 12/12/17 07:46 37.0 69 19 138/76 (96) 97 Room Air 12/12/17 04:09 Room Air 12/12/17 03:47 36.7 81 18 109/58 (75) 98 Room Air 12/12/17 00:02 Room Air Notes Mental Status: alert / awake / arousable, participated in evaluation Pt Amnestic to Procedure: Yes Nausea / Vomiting: adequately controlled Pain: adequately controlled Airway Patency, RR, SpO2: stable & adequate BP & HR: stable & adequate Hydration State: stable & adequate Anesthetic Complications: no major complications apparent
[2017-12-12 12:18] VITALS: BP 157/74; PULSE 71; TEMP 36.9; O2SAT 100
[2017-12-12 15:33] VITALS: BP 149/61; PULSE 72; TEMP 36.9; O2SAT 98
[2017-12-12] MEDS ORDERED: PANT40TA PO (16:01)
[2017-12-12] MEDS ORDERED: FRRS300 PO (16:01)
[2017-12-12 16:03] VITALS: BP 123/68; PULSE 93; TEMP 36.6; O2SAT 94
--- NOTE | 2017-12-12 16:03 | Discharge Summary ---
Discharge Summary Date of Service Dec 12, 2017. Discharge Summary Admission Date: Dec 09, 2017 at 20:46 Discharge Date: Dec 12, 2017 Discharge Disposition: Home Principal Diagnosis: Anemia, GI bleeding Procedures: CT ABD: 1. There is mild nonspecific stranding suggested around the distal stomach. No significant gastric wall thickening is identified. Correlate clinically for evidence of gastritis. Endoscopy could be considered for further assessment if clinically warranted. 2. The small bowel loops and colon are normal in appearance. 3. Moderate to large hiatal hernia. 4. Findings suggest mild hepatic steatosis. 5. Additional findings as above. CXR: No active disease in the chest. Colonoscopy showed Internal Hemorrhoids Endoscopy:Hiatal Hernia, Grade B reflex Esophagitis, Esophageal Mucosal Nodule Consultations: GI Pending Studies/Follow-Up: Follow up with your PCP on 12/15/17 at 10:45AM Follow up with your Jewelry Estimator for repeat EGD as advised Seek immediate medical attention if your symptoms reoccur or worsen Medication Reconciliation New Medications: Ferrous Sulfate (Ferrous Sulfate) 325 Mg Tab 325 MG PO BID for 45 Days, #90 TABS Pantoprazole (Protonix) 40 Mg Tab 40 MG PO DAILY for 30 Days, #30 TAB 1 Refill Admission Information HPI (per Admitting provider): Pt is 37 y/o M with no significant past medical history presented to ER sent from PCPs office for the hemoglobin. Patient seen at PCP office today and had hemoglobin: 4.1 and negative chest x-ray. Patient states for at least a month has noticed shortness of breath with climbing 2 sets of stairs and has noticed sensation of heart beating in his ears after climbing stairs. He has noticed generalized muscle tightness after carrying groceries for the past month also. Couple of days ago had cramping of lower extremity. Patient reports past 3 weeks has had a cough sometimes productive of white sputum. Reports since August or September has noticed very dark colored stools which he thought was maybe very dark green but could have been black which he attributed to eating a lot of leafy greens. Patient states 10 days ago he ate david salad when he was at a conference in [place]. That evening started with multiple episodes of diarrhea which lasted several days. Past couple of days have had very soft BMs. Today one soft BM this morning none since. Past 10 days has noticed very black colored stools. Denies any noted bright red blood per rectum or red bloody stools. Denies any abdominal pain or vomiting. Patient states for the last couple of months has been feeling tired or weak notices this on the weekends and takes his temperature and temp of 99 F. States his son had one episode of a loose bowel movement this past week. Reports past several months has had decreased appetite. He is unsure if had any weight loss. Reports people been telling him for couple of weeks that he looks pale. No others with GI symptoms. Patient denies any other recent travel. Denies recent antibiotic use. States occasionally will have indigestion after eating spicy foods which is resolved by drinking a glass of milk or take an antacid. Takes 2 ibuprofen 1-2 times a week over the past 3 weeks for intermittent headache. Denies EtOH use or tobacco use. Denies fever/chills, diaphoresis, dizziness, syncope, vision changes, neck pain, CP, orthopnea, hemoptysis, palpitations, sore throat, choking, otalgia, rhinorrhea, paresthesias, rashes, urinary symptoms. Denies history of IBD, celiac disease, PUD, H Pylori, GI bleed in past. Physical Exam (per Admitting): General Appearance: WD/WN, no apparent distress Head: normocephalic, atraumatic Eyes: PERRL, EOMI, sclerae normal, + pertinent finding (+pale conjunctiva) ENT: hearing grossly normal, pharynx normal, + pertinent finding (mucous membranes moist) Neck: supple, trachea midline Respiratory/Chest: lungs clear, normal breath sounds, no respiratory distress Cardiovascular: regular rate, rhythm, no murmur, normal peripheral pulses Abdomen/GI: normal bowel sounds, non tender, soft Extremities/Musculoskelatal: normal inspection, normal capillary refill, no pedal edema, normal range of motion, non-tender Neurologic/Psych: alert, normal mood/affect, oriented x 3 Skin: warm/dry, + pertinent finding (+pale) Hospital Course Profound microcytic Anemia: Chronic GI bleeding: H/O melena intermittently, CHOI S/P 5 units PRBCs IV Protonix discontinued IV Fluids Vitamin B12 and folate:normal CT abd: gastritis, large hiatal hernia C.diff: negative Appreciate GI Input monitor H&H Hb: 7.9 today Avoid NSAIDs Colonoscopy showed Internal Hemorrhoids Endoscopy:Hiatal Hernia, Grade B reflex Esophagitis, Esophageal Mucosal Nodule Hb stable Plan to DC on Protonix 40mg daily Iron supplements for 6 weeks Needs repeat EGD in 8-12 weeks DVT Px: SCDs Disposition: Expect to discharge home today Follow up with your PCP on 12/15/17 at 10:45AM Follow up with your Jewelry Estimator for repeat EGD as advised Seek immediate medical attention if your symptoms reoccur or worsen Total time spent on discharge = 34 minutes This includes examination of the patient, discharge planning, medication reconciliation, and communication with other providers. Discharge Instructions Discharge Instructions Date of Service Dec 12, 2017. Admission Reason for Admission: Anemia, Gi Bleed Discharge Discharge Diagnosis / Problem: Anemia, GI bleeding Discharge Goals Goal(s): Decrease discomfort, Improve function Activity Recommendations Activity Limitations: per Instructions/Follow-up section Lifting Limitations: gradually increase as tolerated Exercise/Sports Limitations: gradually increase as tolerated . Instructions / Follow-Up Instructions / Follow-Up Follow up with your PCP on 12/15/17 at 10:45AM Follow up with your Jewelry Estimator for repeat EGD as advised Seek immediate medical attention if your symptoms reoccur or worsen Current Hospital Diet Patient's current hospital diet: Regular Diet Discharge Diet Recommended Diet: Regular Diet Pending Studies Studies pending at discharge: no Medical Emergencies . Who to Call and When: Medical Emergencies: If at any time you feel your situation is an emergency, please call 911 immediately. . Non-Emergent Contact Non-Emergency issues call your: Primary Care Provider, Jewelry Estimator Call Non-Emergent contact if: you have a fever, your pain is not controlled, your pain is worsening, your pain is unusual for you, your pain is concerning you, you have any medication questions . . "Provider Documentation" section prepared by Donald Greenberg. . <Electronically signed by Donald Greenberg MD> Signed: 12/12/17 [id number] Signed: The status of this report is Signed * If report status is Draft, the document has not been finalized by the responsible provider.
[2017-12-12 16:26] VITALS: BP 123/68; PULSE 93; TEMP 36.6; O2SAT 94
--- NOTE | 2017-12-14 10:44 | EDITING REQUIRED CODING QUERY ---
CODING QUERY To promote full compliance with coding requirements relating to patient care, provider participation is requested in all cases of excel specialist uncertainty. Please assist us with the question(s) below: Coding Question(s): Patient admitted with profound anemia. Colonoscopy and EGD done - Please indicate, if known or suspected, the etiology of the GI bleed. Thanks for your help! Donte Winkler [facility] Physician's Response(s): Likely Esophagitis and Internal Hemorrhoids Principal Diagnosis: "_that condition established after study, to be chiefly responsible for occasioning the admission of the patient to the hospital for care." Co-Existing Principal Diagnosis: "_when two or more diagnoses equally meet the criteria for principal diagnosis as determined by the circumstances of admission, diagnostic work up, and/or therapy provided, and the Alphabetic Index, Tabular List, or another coding guideline does not provide sequencing direction, any one of the diagnoses may be sequenced first." "When the physician has documented what appears to be a current diagnosis in the body of the record, but has not included the diagnosis in the final diagnostic statement, the physician should be asked whether the diagnosis should be added." (Source Coding [facility] 2 QTR90. p3-4)
== END 2017-12-12 16:35 | disposition home or self-care (01) | DRG 394 ==
LOC: C.EDB 17:52 → C.MSICU 20:46 → EDBEDREQSVC 20:48 → EDBEDREQ 20:48 → ENRESERV 20:59 → C.2E 12-10 16:15
PROVIDERS: ADMIT Internal Medicine; ATTEND Internal Medicine
PROC: 0DJD8ZZ Inspection of Lower Intestinal Tract, Via Natural or Artificial Opening Endoscopic (ICD-10-PCS; principal; 2017-12-12 10:16)
PROC: 0DB48ZX Excision of Esophagogastric Junction, Via Natural or Artificial Opening Endoscopic, Diagnostic (ICD-10-PCS; principal; 2017-12-12 10:16)
PROC: 0DB98ZX Excision of Duodenum, Via Natural or Artificial Opening Endoscopic, Diagnostic (ICD-10-PCS; principal; 2017-12-12 10:16)
DX: K64.8 Other hemorrhoids (principal); K20.8 Other esophagitis; K92.2 Gastrointestinal hemorrhage, unspecified; K29.70 Gastritis, unspecified, without bleeding; K21.9 Gastro-esophageal reflux disease without esophagitis; D50.0 Iron deficiency anemia secondary to blood loss (chronic)